=== PATIENT | male | born 1930 | race Caucasian/White ===

== ENCOUNTER 2016-05-22 12:15 | Emergency (ER) | payer MEDICARE, BC ==
[~2016-05-22] VITALS: Ht 177.8 cm; Wt 110.0 kg
[~2016-05-22 12:15] MED LIST: ALLO100T PO; AMLO10 PO; AVAP300T PO; CARD4TAB2 PO; CIPR500T4 PO; COUM5TAB PO; FURO1TAB93 PO; KLOR8TAB PO; METO50 PO; OMPR20CCR PO; PROV200T11 PO; SIMV40TA PO; WARF7.5T4 PO; ZOLP10TA3 PO
[2016-05-22 12:17] VITALS: BP 135/69; PULSE 88; RESP 12; TEMP 97.5; O2SAT 92
[2016-05-22] MEDS ORDERED: SODIUM CHLOR 0.9% 1000 ML INJ 1,000 ML IV SCH (13:11)
[2016-05-22 13:13] LABS: MEAN CORPUSCULAR HGB CONC 36.3 % (32.0-36.0)
[2016-05-22] MEDS ORDERED: SODIUM CHLORIDE 0.9% FLUSH 5 ML FLUSH IVF PRN (13:15)
[2016-05-22 13:23] VITALS: RESP 18; O2SAT 97
--- NOTE | 2016-05-22 13:59 | PD ---
HPI Chief Complaint: Abdominal Pain Time Seen by Provider: 12:50 Travel History International Travel<30 days: No Contact w/Intl Traveler<30days: No Traveled to known affect area: No History of Present Illness HPI 85-year-old man presents to the emergency department referred in by his primary physician reportedly for a stomach infection. He's been having lower abdominal pain for the past 1-2 weeks associated with copious diarrhea. He's had nausea and a little bit of vomiting as well. He's had diverticular disease in the past. No sick contacts. No recent antibiotics or healthcare exposures. States he had blood work done by his primary physician and that he was referred to the emergency department for concern for a stomach infection. He otherwise has been feeling generally well. No definite fevers or chills. No other complaints. History Past Medical History Narrative Medical Diverticular disease CAD, history of stent Pacer A. fib, on warfarin Hypertension hyperlipidemia PNEUMOCCOCAL Vaccine (Year): 1 Social History Alcohol Use: Yes (OCCASIONALLY) Tobacco Use: No Allergies-Medications (Allergen,Severity, Reaction): Coded Allergies: Codeine (Verified Allergy, Severe, RESPIRATORY S/S, 05/22/16) Penicillin (Verified Allergy, Severe, RASH, SOB, 05/22/16) Percocet (Verified Allergy, Severe, RESPIRATORY S/S, 05/22/16) Reported Meds & Prescriptions Reported Meds & Active Scripts Active Reported Zolpidem (Zolpidem Tartrate) 10 Mg Tab 10 Mg PO HS PRN Coumadin (Warfarin) 7.5 Mg Tab 7.5 Mg PO SUTUWETHSA Take 1 tablet (7.5mg) on Sunday,Sunday,Sunday, and Sunday Coumadin (Warfarin) 5 Mg Tab 5 Mg PO MOFR Take 1 tablet (5mg) on Sunday and Sunday Zocor (Simvastatin) 40 Mg Tab 40 Mg PO HS Provigil (Modafinil) 200 Mg Tab 200 Mg PO DAILY PRN Klor-Con 8 (Potassium Chloride) 8 Meq Tab 8 Meq PO TID Prilosec (Omeprazole) 40 Mg Cap 40 Mg PO DAILY Lopressor (Metoprolol Tartrate) 50 Mg Tab 50 Mg PO DAILY Cardura (Doxazosin Mesylate) 4 Mg Tab 4 Mg PO DAILY Lasix (Furosemide) 40 Mg Tab 40 Mg PO DAILY Avapro (Irbesartan) 300 Mg Tab 300 Mg PO DAILY Norvasc (Amlodipine Besylate) 10 Mg Tab 10 Mg PO DAILY Allopurinol 100 Mg Tab 100 Mg PO DAILY Review of Systems Except as stated in HPI: all other systems reviewed are Neg Physical Exam Narrative GENERAL: Well-appearing 85-year-old man, no acute distress. SKIN: Warm and dry. ENT: No nasal bleeding or discharge. Mucous membranes pink and moist. NECK: Trachea midline. No JVD. CARDIOVASCULAR: Regular rate and rhythm. No murmur appreciated. RESPIRATORY: No accessory muscle use. Clear to auscultation. Breath sounds equal bilaterally. GASTROINTESTINAL: Abdomen is obese, soft, moderate diffuse tenderness with just a little bit of voluntary guarding. MUSCULOSKELETAL: No obvious deformities. No clubbing. No cyanosis. No edema. NEUROLOGICAL: Awake and alert. No obvious cranial nerve deficits. Motor grossly within normal limits. Normal speech. Data Data Last Documented VS Vital Signs Date Time Temp Pulse Resp B/P Pulse Ox O2 Delivery O2 Flow Rate FiO2 05/22/16 13:23 18 97 Room Air 05/22/16 12:17 97.5 88 135/69 Orders Complete Blood Count With Diff (05/22/16 13:11) Comprehensive Metabolic Panel (05/22/16 13:11) Lipase (05/22/16 13:11) Ct Abd/Pel W Iv Contrast(Rout) (05/22/16 13:11) Iv Access Insert/Monitor (05/22/16 13:11) Ecg Monitoring (05/22/16 13:11) Oximetry (05/22/16 13:11) Sodium Chlor 0.9% 1000 Ml Inj (Ns 1000 M (05/22/16 13:11) Sodium Chloride 0.9% Flush (Ns Flush) (05/22/16 13:15) Iohexol 350 Inj (Omnipaque 350 Inj) (05/22/16 14:50) Labs Laboratory Tests Test 05/22/16 13:45 White Blood Count 6.8 TH/MM3 Red Blood Count 4.29 MIL/MM3 Hemoglobin 14.8 GM/DL Hematocrit 40.9 % Mean Corpuscular Volume 95.2 FL Mean Corpuscular Hemoglobin 34.6 PG Mean Corpuscular Hemoglobin 36.3 % Concent Red Cell Distribution Width 13.7 % Platelet Count 185 TH/MM3 Mean Platelet Volume 9.6 FL Neutrophils (%) (Auto) % Lymphocytes (%) (Auto) % Monocytes (%) (Auto) % Eosinophils (%) (Auto) % Basophils (%) (Auto) % Neutrophils # (Auto) TH/MM3 Lymphocytes # (Auto) TH/MM3 Monocytes # (Auto) TH/MM3 Eosinophils # (Auto) TH/MM3 Basophils # (Auto) TH/MM3 CBC Comment AUTO DIFF Differential Total Cells 100 Counted Neutrophils % (Manual) 61 % Band Neutrophils % 4 % Lymphocytes % 27 % Monocytes % 8 % Neutrophils # (Manual) 4.4 TH/MM3 Differential Comment FINAL DIFF MANUAL Platelet Estimate NORMAL Platelet Morphology Comment CLUMPED Red Cell Morphology Comment NORMAL Sodium Level 141 MEQ/L Potassium Level 4.5 MEQ/L Chloride Level 108 MEQ/L Carbon Dioxide Level 24.4 MEQ/L Anion Gap 9 MEQ/L Blood Urea Nitrogen 28 MG/DL Creatinine 1.43 MG/DL Estimat Glomerular Filtration 47 ML/MIN Rate Random Glucose 93 MG/DL Calcium Level 8.8 MG/DL Total Bilirubin 0.9 MG/DL Aspartate Amino Transf 29 U/L (AST/SGOT) Alanine Aminotransferase 27 U/L (ALT/SGPT) Alkaline Phosphatase 46 U/L Total Protein 6.7 GM/DL Albumin 3.9 GM/DL Lipase 191 U/L [facility] Medical Decision Making Medical Screen Exam Complete: Yes Emergency Medical Condition: Yes Interpretation(s) LABS: CBC unremarkable. CMP mildly elevated BUN/creatinine Lipase normal CT the abdomen and pelvis: Diverticulitis. Differential Diagnosis Diverticulitis, colitis, abscess, other Narrative Course Medical decision making INITIAL: Is an 85-year-old man who presents to the emergency department with abdominal pain, diarrhea, and tenderness, likely diverticulitis. We'll check labs, CT, reassess. Diagnosis Primary Impression: Acute diverticulitis Additional Instructions: Take antibiotics as prescribed. Decrease warfarin to 5 mg daily. Follow-up in 2 days for INR check. Use Lortab if needed for pain. Drink plenty of fluids stay well-hydrated. Follow-up with her primary doctor in the next 2-4 days. Med/Other Pt SpecificInfo: Prescription(s) given Scripts Metronidazole (Flagyl)500 Mg Onr002 Mg PO TID 10 Days Ref 0 Prov:Bay Willingham MD 05/22/16 Ciprofloxacin (Cipro)500 Mg Bbi438 Mg PO BID 10 Days Ref 0 Prov:Bay Willingham MD 05/22/16 Disposition: 01 DISCHARGE HOME Condition: Stable Bay Willingham MD May 22, 2016 13:59
[2016-05-22 14:09] LABS: HEMATOCRIT 40.9 % (39.0-51.0); MEAN CELL VOLUME 95.2 FL (80.0-100.0); MEAN CORPUSCULAR HEMOGLOBIN 34.6 PG (27.0-34.0); PLATELET COUNT 185 TH/MM3 (150-450); RED BLOOD COUNT 4.29 MIL/MM3 (4.50-5.90); RED CELL DISTRIBUTION WIDTH 13.7 % (11.6-17.2); WHITE BLOOD COUNT 6.8 TH/MM3 (4.0-11.0)
[2016-05-22 14:18] LABS: HEMO FLAGS AUTO DIFF
[2016-05-22 14:21] LABS: ALKALINE PHOSPHATASE 46 U/L (45-117); TOTAL BILIRUBIN ADULT 0.9 MG/DL (0.2-1.0)
[2016-05-22 14:24] LABS: ALT (GPT) 27 U/L (12-78); ANION GAP 9 MEQ/L (5-15); AST (GOT) 29 U/L (15-37); BICARBONATE 24.4 MEQ/L (21.0-32.0); BLOOD UREA NITROGEN 28 MG/DL (7-18); CHLORIDE 108 MEQ/L (98-107); GLOMERULAR FILTRATION RATE 47 ML/MIN (>89); SODIUM (NA) 141 MEQ/L (136-145)
[2016-05-22 14:25] LABS: POTASSIUM 4.5 MEQ/L (3.5-5.1)
[2016-05-22] MEDS ORDERED: CARD4TAB2 PO (14:26)
[2016-05-22] MEDS ORDERED: PROV200T11 PO (14:26)
[2016-05-22] MEDS ORDERED: COUM7.5T PO (14:26)
[2016-05-22] MEDS ORDERED: FURO1TAB60 PO (14:26)
[2016-05-22] MEDS ORDERED: IRBE300T44 PO (14:26)
[2016-05-22] MEDS ORDERED: ALLO100T PO (14:26)
[2016-05-22] MEDS ORDERED: COUM5TAB PO (14:26)
[2016-05-22] MEDS ORDERED: PRIL40CA PO (14:26)
[2016-05-22] MEDS ORDERED: METO-309 PO (14:26)
[2016-05-22] MEDS ORDERED: KLOR8TAB PO (14:26)
[2016-05-22] MEDS ORDERED: ZOLP10TA3 PO (14:26)
[2016-05-22] MEDS ORDERED: ZOCO40TA PO (14:26)
[2016-05-22] MEDS ORDERED: AMLO10 PO (14:26)
[2016-05-22 14:41] LABS: BANDS 4 % (0-6); NEUTROPHIL # MANUAL DIFF 4.4 TH/MM3 (1.8-7.7); POLYS (SEG NEUTROPHILS) 61 % (16-70); WBC DIFF SAMPLE 100
[2016-05-22 14:42] LABS: PLATELET ESTIMATE SMEAR NORMAL (NORMAL); PLATELET MORPHOLOGY CLUMPED (NORMAL)
[2016-05-22 14:43] LABS: SCAN/DIFF FINAL DIFF MANUAL
[2016-05-22] MEDS ORDERED: IOHEXOL 350 MG/ML 10 ML VIAL (for RAD DIAG) IV ONE (14:50)
--- NOTE | 2016-05-22 15:09 | RADRPT ---
EXAM DATE/TIME: 05/22/2016 14:47 [place] COMPARISON: CT ABDOMEN & PELVIS W CONTRAST, September 10, 2012, 16:01. INDICATIONS : Nausea and vomiting. Copious diarrhea x 2 weeks. IV CONTRAST: 75 cc Omnipaque 350 (iohexol) IV ORAL CONTRAST: No oral contrast ingested. RADIATION DOSE: 11.46 CTDIvol (mGy) MEDICAL HISTORY : Carcinoma, colon. Congestive heart failure. Renal calculi.Hypertension. SURGICAL HISTORY : Colon resection. Appendectomy.Pacemaker. ENCOUNTER: Initial ACUITY: 2 weeks PAIN SCALE: 2/10 LOCATION: Abdomen. TECHNIQUE: Volumetric scanning of the abdomen and pelvis was performed. Using automated exposure control and ad justment of the mA and/or kV according to patient size, radiation dose was kept as low as reasonably achievable to obtain optimal diagnostic quality images. FINDINGS: LOWER LUNGS: The visualized lower lungs are clear. LIVER: Scattered hepatic cysts are again noted. No ductal dilatation. There are stones in the gallbladder. N o common bile duct stone or dilatation. SPLEEN: Previous splenic infarct with regeneration. PANCREAS: Within normal limits. KIDNEYS: Bilateral cysts measuring up to 7 cm in size again noted. No stone. No hydronephrosis or hydroureter. ADRENAL GLANDS: Within normal limits. VASCULAR: There is atherosclerosis of the abdominal aorta and iliac arteries. No aneurysm. BOWEL/MESENTERY: Severe diverticulosis seen of the descending and sigmoid portions of the colon. There is mild edema i n the surrounding fat near the descending/sigmoid junction. No obstruction or perforation. ABDOMINAL WALL: Within normal limits. RETROPERITONEUM: There is no lymphadenopathy. BLADDER: No wall thickening or mass. REPRODUCTIVE: Within normal limits. INGUINAL: There is no lymphadenopathy or hernia. MUSCULOSKELETAL: Within normal limits for patient age. CONCLUSION: 1. Severe diverticulosis with mild, uncomplicated diverticulitis of the descending and sigmoid portio ns of the colon. 2. Unchanged hepatic and renal cysts. 3. 2 cm stone in the gallbladder. No perceptible inflammatory changes. No duct stone or ductal dilata tion. 4. Aortoiliac atherosclerosis. No aneurysm. Gualberto Mcmillan MD on May 22, 2016 at 15:05 Board Certified Radiologist. This report was verified electronically.
[2016-05-22] MEDS ORDERED: CIPR-9 PO (15:38)
[2016-05-22] MEDS ORDERED: METR-1 PO (15:38)
[2016-05-22] MEDS ORDERED: HYDR-3533 PO (15:40)
[2016-05-22] MEDS ORDERED: metroNIDAZOLE 500 MG TAB PO ONE (15:45)
[2016-05-22] MEDS ORDERED: CIPROFLOXACIN 500 MG TAB PO ONE (15:45)
[2016-05-22 16:32] LABS: INTERNATIONAL NORMALIZED RATIO 1.2 RATIO; PROTHROMBIN TIME - PATIENT 13.4 SEC (9.8-11.6)
== END 2016-05-22 15:58 | disposition home or self-care (01) ==
LOC: NEPE 12:15
DX: K57.92 Diverticulitis of intestine, part unspecified, without perforation or abscess without bleeding (principal); I25.10 Atherosclerotic heart disease of native coronary artery without angina pectoris; I48.91 Unspecified atrial fibrillation; I10 Essential (primary) hypertension; E78.5 Hyperlipidemia, unspecified; Z79.01 Long term (current) use of anticoagulants; Z95.0 Presence of cardiac pacemaker; Z98.61 Coronary angioplasty status
CPT/HCPCS: 74177; 80053; 83690; 85007; 85027; 85610; 96360; 99284; J7030; Q9967

== ENCOUNTER 2016-05-31 17:58 | Inpatient (IN) | payer MEDICARE, BC ==
[~2016-05-31] VITALS: Ht 177.8 cm; Wt 110.0 kg
[~2016-05-31 17:58] MED LIST changes: -AVAP300T PO; +CIPR-9 PO; -CIPR500T4 PO; +COUM7.5T PO; +FURO1TAB60 PO; -FURO1TAB93 PO; +HYDR-3533 PO; +IRBE300T44 PO; +METO-309 PO; -METO50 PO; +METR-1 PO; -OMPR20CCR PO; +PRIL40CA PO; -SIMV40TA PO; -WARF7.5T4 PO; +ZOCO40TA PO
[2016-05-31 19:15] VITALS: BP 168/79; PULSE 65; RESP 20; TEMP 98.5; O2SAT 96
[2016-05-31 19:22] VITALS: RESP 20
--- NOTE | 2016-05-31 19:43 | PD ---
HPI Chief Complaint: Altered Mental Status Time Seen by Provider: 19:39 Travel History International Travel<30 days: No Contact w/Intl Traveler<30days: No Traveled to known affect area: No History of Present Illness HPI 85-year-old male that presents to the ED for evaluation of altered mental status via E back. Patient was recently seen on the may for diverticulitis and discharged home with antibiotics. Per patient she's been taking antibiotics and he feels that his pain is getting better that he still continues to have the pain. Apparently patient's is currently in hospice for possible CVA the patient is not real aware of it. Patient again is confused as the main reason he is here. Patient apparently was found by neighbors been confused and they were concerned. Patient denies any other medical problem. Per patient he does feel weak. He states I'm bowel movements today. States having gas. No nausea or vomiting. No chest pain or shortness of breath. No headache or lightheadedness. No blurry vision or double vision. Per patient pain is 4 out of 10 on his lower abdomen. He does have allergies to codeine, penicillin, Percocet. Denies any other medical problem at this time. Patient states that he only lives with his but as of the time to his was admitted he is living by himself. PFSH Past Medical History Hx Anticoagulant Therapy: Yes (Coumadin ) Arthritis: Yes (HANDS, knees) Asthma: No Atrial Fibrillation: Yes Autoimmune Disease: No Blood Disorders: No Anxiety: No Depression: No Heart Rhythm Problems: Yes Cancer: Yes (COLON) Cardiac Catheterization: Yes Cardiovascular Problems: Yes (AF, pacemaker) High Cholesterol: Yes Chemotherapy: No Chest Pain: Yes Congestive Heart Failure: Yes COPD: No Cerebrovascular Accident: No Diabetes: Yes (Borderline ) Diminished Hearing: No Endocrine: Yes Gastrointestinal Disorders: Yes GERD: Yes Glaucoma: No Genitourinary: Yes Headaches: No Hepatitis: No Hiatal Hernia: No Hypertension: Yes Immune Disorder: No Implanted Vascular Access Dvce: Yes Kidney Stones: Yes Musculoskeletal: Yes Neurologic: No Psychiatric: No Reproductive: No Respiratory: Yes (Sleep apnea) Immunizations Current: Yes Migraines: No Myocardial Infarction: Yes Radiation Therapy: No Renal Failure: No Seizures: No Sickle Cell Disease: No Sleep Apnea: Yes Thyroid Disease: No Ulcer: No PNEUMOCCOCAL Vaccine (Year): 1 Past Surgical History Abdominal Surgery: Yes (COLON CA/ RESECTION) AICD: Yes Appendectomy: Yes Arteriovenous Shunt: No Body Medical Devices: PACEMAKER/DEFIBRILLATOR Cardiac Surgery: Yes (CARDIAC CATH-09/25 ) Cholecystectomy: No Coronary Stent: Yes ("MULTIPLE") Ear Surgery: No Endocrine Surgery: No Eye Surgery: Yes (CATARACT SURGERY WITH LENS IMPLANTS) Genitourinary Surgery: No Gynecologic Surgery: No Insulin Pump: No Joint Replacement: No Neurologic Surgery: Yes (LOWER BACK SURGERY) Oral Surgery: No Pacemaker: Yes (ST HARJINDER MODEL) Thoracic Surgery: No Other Surgery: Yes (BACK SURGERYX2; COLON CA & RESECTION; PILONIDAL CYST REMOVED FROM SPINE; AP) Social History Alcohol Use: Yes (OCCASIONALLY) Tobacco Use: No Substance Use: No Allergies-Medications (Allergen,Severity, Reaction): Coded Allergies: Codeine (Verified Allergy, Severe, RESPIRATORY S/S, 05/31/16) Penicillin (Verified Allergy, Severe, RASH, SOB, 05/31/16) Percocet (Verified Allergy, Severe, RESPIRATORY S/S, 05/31/16) Reported Meds & Prescriptions Reported Meds & Active Scripts Active Lortab (Hydrocodone-Acetaminophen) 5-325 Mg Tab 1-2 Tab PO Q6H PRN Flagyl (Metronidazole) 500 Mg Tab 500 Mg PO TID 10 Days Cipro (Ciprofloxacin HCl) 500 Mg Tab 500 Mg PO BID 10 Days Reported Zolpidem (Zolpidem Tartrate) 10 Mg Tab 10 Mg PO HS PRN Coumadin (Warfarin) 7.5 Mg Tab 7.5 Mg PO SUTUWETHSA Take 1 tablet (7.5mg) on Sunday,Sunday,Sunday, and Sunday Coumadin (Warfarin) 5 Mg Tab 5 Mg PO MOFR Take 1 tablet (5mg) on Sunday and Sunday Zocor (Simvastatin) 40 Mg Tab 40 Mg PO HS Provigil (Modafinil) 200 Mg Tab 200 Mg PO DAILY PRN Klor-Con 8 (Potassium Chloride) 8 Meq Tab 8 Meq PO TID Prilosec (Omeprazole) 40 Mg Cap 40 Mg PO DAILY Lopressor (Metoprolol Tartrate) 50 Mg Tab 50 Mg PO DAILY Cardura (Doxazosin Mesylate) 4 Mg Tab 4 Mg PO DAILY Lasix (Furosemide) 40 Mg Tab 40 Mg PO DAILY Avapro (Irbesartan) 300 Mg Tab 300 Mg PO DAILY Norvasc (Amlodipine Besylate) 10 Mg Tab 10 Mg PO DAILY Allopurinol 100 Mg Tab 100 Mg PO DAILY Review of Systems Except as stated in HPI: all other systems reviewed are Neg Physical Exam Narrative GENERAL: SKIN: Warm and dry. HEAD: Atraumatic. Normocephalic. EYES: Pupils equal and round. No scleral icterus. No injection or drainage. ENT: No nasal bleeding or discharge. Mucous membranes pink and moist. Tongue is midline. No uvula deviation. NECK: Trachea midline. No JVD. CARDIOVASCULAR: Regular rate and rhythm. RESPIRATORY: No accessory muscle use. Clear to auscultation. Breath sounds equal bilaterally. GASTROINTESTINAL: Abdomen soft, patient has tenderness to palpation on the lower abdomen, nondistended. Hepatic and splenic margins not palpable. Patient has no CVA tenderness. MUSCULOSKELETAL: Extremities without clubbing, cyanosis, or edema. No obvious deformities. Full range of motion of the upper and lower extremities bilaterally. 2+ pulses bilaterally. NEUROLOGICAL: Awake and alert but only oriented x2. No obvious cranial nerve deficits. Motor grossly within normal limits. Five out of 5 muscle strength in the arms and legs. Normal speech. PSYCHIATRIC: Appropriate mood and affect; insight and judgment normal. Data Data Last Documented VS Vital Signs Date Time Temp Pulse Resp B/P Pulse Ox O2 Delivery O2 Flow Rate FiO2 05/31/16 20:14 67 20 165/87 98 Room Air 05/31/16 19:15 98.5 Orders Electrocardiogram (05/31/16 19:14) Complete Blood Count With Diff (05/31/16 19:14) Comprehensive Metabolic Panel (05/31/16 19:14) Ckmb (Isoenzyme) Profile (05/31/16 19:14) Troponin I (05/31/16 19:14) Prothrombin Time / Inr (Pt) (05/31/16 19:14) Act Partial Throm Time (Ptt) (05/31/16 19:14) Lipase (05/31/16 19:14) Urinalysis - C+S If Indicated (05/31/16 19:14) Thyroid Stimulating Hormone (05/31/16 19:14) Chest, Single Ap (05/31/16 19:14) Iv Access Insert/Monitor (05/31/16 19:14) Ecg Monitoring (05/31/16 19:14) Oximetry (05/31/16 19:14) Ct Brain W/O Iv Contrast(Rout) (05/31/16 19:19) Ct Abd/Pel W Iv Contrast(Rout) (05/31/16 19:19) Lactic Acid (05/31/16 19:42) Sodium Chlor 0.9% 1000 Ml Inj (Ns 1000 M (05/31/16 19:59) Potassium Cl 40 Meq/30 Ml Liq (Kcl 40 Me (05/31/16 21:00) Iohexol 350 Inj (Omnipaque 350 Inj) (05/31/16 21:34) Cefepime Inj (Maxipime Inj) (05/31/16 21:45) Mri Brain W&W/O Contrast (05/31/16 ) Labs Laboratory Tests Test 05/31/16 05/31/16 19:35 19:50 Urine Color YELLOW Urine Turbidity CLEAR Urine pH 5.0 Urine Specific [place] 1.020 Urine Protein NEG mg/dL Urine Glucose (UA) NEG mg/dL Urine Ketones NEG mg/dL Urine Occult Blood NEG Urine Nitrite NEG Urine Bilirubin NEG Urine Urobilinogen LESS THAN 2.0 MG/DL Urine Leukocyte Esterase NEG Urine RBC LESS THAN 1 /hpf Urine WBC LESS THAN 1 /hpf Urine Hyaline Casts 1 /lpf Urine Mucus FEW /lpf Microscopic Urinalysis Comment CULT NOT INDICATED White Blood Count 3.0 TH/MM3 Red Blood Count 4.14 MIL/MM3 Hemoglobin 13.3 GM/DL Hematocrit 39.5 % Mean Corpuscular Volume 95.4 FL Mean Corpuscular Hemoglobin 32.1 PG Mean Corpuscular Hemoglobin 33.7 % Concent Red Cell Distribution Width 13.8 % Platelet Count 165 TH/MM3 Mean Platelet Volume 8.1 FL Neutrophils (%) (Auto) % Lymphocytes (%) (Auto) % Monocytes (%) (Auto) % Eosinophils (%) (Auto) % Basophils (%) (Auto) % Neutrophils # (Auto) TH/MM3 Lymphocytes # (Auto) TH/MM3 Monocytes # (Auto) TH/MM3 Eosinophils # (Auto) TH/MM3 Basophils # (Auto) TH/MM3 CBC Comment AUTO DIFF Differential Total Cells 100 Counted Neutrophils % (Manual) 10 % Band Neutrophils % 1 % Lymphocytes % 56 % Monocytes % 28 % Eosinophils % 4 % Basophils % 1 % Neutrophils # (Manual) 0.3 TH/MM3 Differential Comment FINAL DIFF MANUAL Platelet Estimate NORMAL Platelet Morphology Comment NORMAL Acanthocytes OCC Prothrombin Time 18.6 SEC Prothromb Time International 1.6 RATIO Ratio Activated Partial 26.4 SEC Thromboplast Time Sodium Level 147 MEQ/L Potassium Level 2.8 MEQ/L Chloride Level 116 MEQ/L Carbon Dioxide Level 22.7 MEQ/L Anion Gap 8 MEQ/L Blood Urea Nitrogen 18 MG/DL Creatinine 0.73 MG/DL Estimat Glomerular Filtration 102 ML/MIN Rate Random Glucose 74 MG/DL Lactic Acid Level 1.3 mmol/L Calcium Level 6.1 MG/DL Protein Corrected Calcium 7.3 MG/DL Total Bilirubin 0.4 MG/DL Aspartate Amino Transf 12 U/L (AST/SGOT) Alanine Aminotransferase 21 U/L (ALT/SGPT) Alkaline Phosphatase 32 U/L Total Creatine Kinase 55 U/L Troponin I 0.03 NG/ML Total Protein 4.5 GM/DL Albumin 2.5 GM/DL Lipase 97 U/L Thyroid Stimulating Hormone 2.090 uIU/ML 3rd Gen [facility] Medical Decision Making Medical Screen Exam Complete: Yes Emergency Medical Condition: Yes Medical Record Reviewed: Yes Interpretation(s) Last Impressions Head CT 05/31/161918 Signed Impressions: Service Date/Time: Tuesday, May 31, 2016 21:26 - CONCLUSION: 1. Extensive nonspecific white matter changes. 2. Prominent area of low-density in the midbrain of uncertain etiology. Nonemergent contrasted MRI of the brain recommended. Johnson Salinas MD Abdomen/Pelvis CT 05/31/[id number] Signed Impressions: Service Date/Time: Tuesday, May 31, 2016 21:26 - CONCLUSION: 1. Diverticulosis without diverticulitis. 2. Unchanged cholelithiasis. 3. Unchanged hepatic low-density lesions in bilateral renal cysts. Johnson Salinas MD Chest X-Ray 05/31/[id number] Signed Impressions: Service Date/Time: Tuesday, May 31, 2016 19:37 - CONCLUSION: 1. Elevation right hemidiaphragm, chronic. 2. Right basilar subsegmental atelectasis versus scarring. 3. Cardiomegaly and left-sided pacemaker. Johnson Salinas MD CBC & BMP Diagram 05/31/16 19:50 lactic WNL. LFTS WNL Lipase WNL UA unremarcable Differential Diagnosis Acute diverticulitis versus perforated bowel versus sepsis versus anemia versus altered mental status versus CVA Narrative Course 85-year-old male that presents to the ED for evaluation of confusion. Patient was properly examined and was found to have signs and symptoms concerning for sepsis with altered mental status. Labs and imaging were ordered. Case discussed with my attending who agrees with plan. Patient agrees with us to proceed. Labs and imaging did not show diverticulitis with extremities or pain as well as abnormality on the CT of the head with MRI recommended as well as hyperkalemia, hypernatremia and hypocalcemia. Case was discussed with my attending who recommends starting IV fluids, replenish his potassium, antibiotics. She recommends admission for altered mental status. Case was discussed with Dr. Theodore who agrees to admission. Sepsis Criteria SIRS Criteria (2 or more): WBC > 02548, < 4000 or > 10% bands Diagnosis Primary Impression: Altered mental status Qualified Code: R41.82 - Altered mental status, unspecified altered mental status type Additional Impressions: Neutropenia Qualified Code: D70.9 - Neutropenia, unspecified type Abdominal pain Qualified Code: R10.30 - Lower abdominal pain Admitting Information Admitting Physician Requests: Admit Brady Alicia May 31, 2016 19:42
[2016-05-31] MEDS ORDERED: SODIUM CHLOR 0.9% 1000 ML INJ 1,000 ML IV SCH (19:59)
[2016-05-31 20:08] LABS: HEMATOCRIT 39.5 % (39.0-51.0); MEAN CELL VOLUME 95.4 FL (80.0-100.0); MEAN CORPUSCULAR HEMOGLOBIN 32.1 PG (27.0-34.0); MEAN CORPUSCULAR HGB CONC 33.7 % (32.0-36.0); PLATELET COUNT 165 TH/MM3 (150-450); RED BLOOD COUNT 4.14 MIL/MM3 (4.50-5.90); RED CELL DISTRIBUTION WIDTH 13.8 % (11.6-17.2)
--- NOTE | 2016-05-31 20:08 | PD ---
Physical Exam Narrative I, Dr. Spencer, have reviewed the advance practice practitioner's documentation and am in agreement, met with the patient face to face, made the diagnosis, and the medical decision making was done by me. *My assessment and Findings: Patient is an 85-year-old male who comes in a cousin he has been having issues remembering things. He is diagnosed with radiculitis and has been on antibiotics, but his family members say that he is not acting like himself now. He says he was out today and he was unable to find his way home. His family member says that he forgets racing in the middle of sentence. He has no complaint of any pain at this time. Exam shows tenting of the skin. Patient appears pale. Exam shows no tenderness to palpation of the abdomen. He is moving all his extremities. Data Data Last Documented VS Vital Signs Date Time Temp Pulse Resp B/P Pulse Ox O2 Delivery O2 Flow Rate FiO2 05/31/16 20:14 67 20 165/87 98 Room Air 05/31/16 19:15 98.5 Orders Electrocardiogram (05/31/16 19:14) Complete Blood Count With Diff (05/31/16 19:14) Comprehensive Metabolic Panel (05/31/16 19:14) Ckmb (Isoenzyme) Profile (05/31/16 19:14) Troponin I (05/31/16 19:14) Prothrombin Time / Inr (Pt) (05/31/16 19:14) Act Partial Throm Time (Ptt) (05/31/16 19:14) Lipase (05/31/16 19:14) Urinalysis - C+S If Indicated (05/31/16 19:14) Thyroid Stimulating Hormone (05/31/16 19:14) Chest, Single Ap (05/31/16 19:14) Iv Access Insert/Monitor (05/31/16 19:14) Ecg Monitoring (05/31/16 19:14) Oximetry (05/31/16 19:14) Ct Brain W/O Iv Contrast(Rout) (05/31/16 19:19) Ct Abd/Pel W Iv Contrast(Rout) (05/31/16 19:19) Lactic Acid (05/31/16 19:42) Sodium Chlor 0.9% 1000 Ml Inj (Ns 1000 M (05/31/16 19:59) Potassium Cl 40 Meq/30 Ml Liq (Kcl 40 Me (05/31/16 21:00) Iohexol 350 Inj (Omnipaque 350 Inj) (05/31/16 21:34) Cefepime Inj (Maxipime Inj) (05/31/16 21:45) Admit Order (Ed Use Only) (05/31/16 22:18) Labs Laboratory Tests Test 05/31/16 05/31/16 19:35 19:50 Urine Color YELLOW Urine Turbidity CLEAR Urine pH 5.0 Urine Specific [place] 1.020 Urine Protein NEG mg/dL Urine Glucose (UA) NEG mg/dL Urine Ketones NEG mg/dL Urine Occult Blood NEG Urine Nitrite NEG Urine Bilirubin NEG Urine Urobilinogen LESS THAN 2.0 MG/DL Urine Leukocyte Esterase NEG Urine RBC LESS THAN 1 /hpf Urine WBC LESS THAN 1 /hpf Urine Hyaline Casts 1 /lpf Urine Mucus FEW /lpf Microscopic Urinalysis Comment CULT NOT INDICATED White Blood Count 3.0 TH/MM3 Red Blood Count 4.14 MIL/MM3 Hemoglobin 13.3 GM/DL Hematocrit 39.5 % Mean Corpuscular Volume 95.4 FL Mean Corpuscular Hemoglobin 32.1 PG Mean Corpuscular Hemoglobin 33.7 % Concent Red Cell Distribution Width 13.8 % Platelet Count 165 TH/MM3 Mean Platelet Volume 8.1 FL Neutrophils (%) (Auto) % Lymphocytes (%) (Auto) % Monocytes (%) (Auto) % Eosinophils (%) (Auto) % Basophils (%) (Auto) % Neutrophils # (Auto) TH/MM3 Lymphocytes # (Auto) TH/MM3 Monocytes # (Auto) TH/MM3 Eosinophils # (Auto) TH/MM3 Basophils # (Auto) TH/MM3 CBC Comment AUTO DIFF Differential Total Cells 100 Counted Neutrophils % (Manual) 10 % Band Neutrophils % 1 % Lymphocytes % 56 % Monocytes % 28 % Eosinophils % 4 % Basophils % 1 % Neutrophils # (Manual) 0.3 TH/MM3 Differential Comment FINAL DIFF MANUAL Platelet Estimate NORMAL Platelet Morphology Comment NORMAL Acanthocytes OCC Prothrombin Time 18.6 SEC Prothromb Time International 1.6 RATIO Ratio Activated Partial 26.4 SEC Thromboplast Time Sodium Level 147 MEQ/L Potassium Level 2.8 MEQ/L Chloride Level 116 MEQ/L Carbon Dioxide Level 22.7 MEQ/L Anion Gap 8 MEQ/L Blood Urea Nitrogen 18 MG/DL Creatinine 0.73 MG/DL Estimat Glomerular Filtration 102 ML/MIN Rate Random Glucose 74 MG/DL Lactic Acid Level 1.3 mmol/L Calcium Level 6.1 MG/DL Protein Corrected Calcium 7.3 MG/DL Total Bilirubin 0.4 MG/DL Aspartate Amino Transf 12 U/L (AST/SGOT) Alanine Aminotransferase 21 U/L (ALT/SGPT) Alkaline Phosphatase 32 U/L Total Creatine Kinase 55 U/L Troponin I 0.03 NG/ML Total Protein 4.5 GM/DL Albumin 2.5 GM/DL Lipase 97 U/L Thyroid Stimulating Hormone 2.090 uIU/ML 3rd Gen [facility] Supervised Visit with NICOLÁS: Yes Narrative Course Labs show neutropenia. Patient was given cefepime. CT of his abdomen and pelvis shows no acute abnormalities. CT head shows a hypodensity that needs further evaluation by MRI. Patient admitted for further management. Guerline Spencer MD May 31, 2016 20:08
[2016-05-31 20:14] VITALS: BP 165/87; PULSE 67; RESP 20; O2SAT 98
[2016-05-31 20:14] LABS: HEMO FLAGS AUTO DIFF
[2016-05-31 20:24] LABS: BLOOD, URINE NEG (NEG); COMMENT (UR) CULT NOT INDICATED; CULTURE IF INDICATED CULT NOT INDICATED; GLUCOSE,URINE NEG (NEG); HYALINE CAST, URINE 1 /lpf (RARE); KETONE, URINE NEG (NEG); MUCUS URINE FEW /lpf (OCC); NITRITE,URINE NEG (NEG); URINE COLOR YELLOW (YELLW/STRAW)
[2016-05-31 20:25] LABS: APTT (PATIENT) 26.4 SEC (24.3-30.1); INTERNATIONAL NORMALIZED RATIO 1.6 RATIO; PROTHROMBIN TIME - PATIENT 18.6 SEC (9.8-11.6)
[2016-05-31 20:54] LABS: BICARBONATE 22.7 MEQ/L (21.0-32.0); TOTAL BILIRUBIN ADULT 0.4 MG/DL (0.2-1.0)
[2016-05-31 20:59] LABS: CALCIUM-PROTEIN CORRECTED 7.3 MG/DL (8.5-10.1); POTASSIUM 2.8 MEQ/L (3.5-5.1)
[2016-05-31] MEDS ORDERED: POTASSIUM CL 40 MEQ/30 ML LIQ UDC PO ONE (21:00)
--- NOTE | 2016-05-31 21:09 | RADRPT ---
EXAM DATE/TIME: 05/31/2016 19:37 [facility] COMPARISON: CHEST SINGLE AP, June 22, 2014, 12:21. INDICATIONS : Weakness. MEDICAL HISTORY : None. SURGICAL HISTORY : None. ENCOUNTER: Initial ACUITY: 1 week PAIN SCORE: 0/10 LOCATION: Bilateral chest FINDINGS: A single view of the chest demonstrates cardiomegaly. Elevation right hemidiaphragm. Right basilar roger bsegmental atelectasis. Left-sided pacemaker stable position. The cardiomediastinal contours are unre markable. Osseous structures are intact. CONCLUSION: 1. Elevation right hemidiaphragm, chronic. 2. Right basilar subsegmental atelectasis versus scarring. 3. Cardiomegaly and left-sided pacemaker. Johnson Salinas MD on May 31, 2016 at 19:45 Board Certified Radiologist. This report was verified electronically.
[2016-05-31 21:30] LABS: ACANTHOCYTES OCC (NORMAL); BANDS 1 % (0-6); BASOPHILS 1 % (0-2); EOSINOPHILS 4 % (0-4); NEUTROPHIL # MANUAL DIFF 0.3 TH/MM3 (1.8-7.7); PLATELET ESTIMATE SMEAR NORMAL (NORMAL); PLATELET MORPHOLOGY NORMAL (NORMAL); POLYS (SEG NEUTROPHILS) 10 % (16-70); SCAN/DIFF FINAL DIFF MANUAL; WBC DIFF SAMPLE 100
[2016-05-31] MEDS ORDERED: IOHEXOL 350 MG/ML 10 ML VIAL (for RAD DIAG) IV ONE (21:34)
--- NOTE | 2016-05-31 21:42 | RADRPT ---
EXAM DATE/TIME: 05/31/2016 21:26 [facility] COMPARISON: No previous studies available for comparison. INDICATIONS : Altered mental status. RADIATION DOSE: 64.16 CTDIvol (mGy) MEDICAL HISTORY : Myocardial infarction. Congestive heart failure. Hypertension. SURGICAL HISTORY : Pacemaker. Bilateral lens implants. ENCOUNTER: Initial ACUITY: 1 day PAIN SCALE: 6/10 LOCATION: cranial TECHNIQUE: Multiple contiguous axial images were obtained of the head. Using automated exposure control and adj ustment of the mA and/or kV according to patient size, radiation dose was kept as low as reasonably a chievable to obtain optimal diagnostic quality images. FINDINGS: CEREBRUM: The ventricles are normal for age. Prominent scattered areas of low attenuation are seen throughout t he white matter. There is also an area of low-density in the midbrain which crosses midline of uncert ain etiology. No evidence of midline shift, mass lesion, hemorrhage or acute infarction. No extra-ax ial fluid collections are seen. POSTERIOR FOSSA: The cerebellum and brainstem are intact. The 4th ventricle is midline. The cerebellopontine angle i s unremarkable. EXTRACRANIAL: The visualized portion of the orbits is intact. Left maxillary sinus disease. SKULL: The calvaria is intact. No evidence of skull fracture. CONCLUSION: 1. Extensive nonspecific white matter changes. 2. Prominent area of low-density in the midbrain of uncertain etiology. Nonemergent contrasted MRI of the brain recommended. Johnson Salinas MD on May 31, 2016 at 21:37 Board Certified Radiologist. This report was verified electronically.
[2016-05-31] MEDS ORDERED: CEFEPIME INJ 1,000 MG in SODIUM CHLORIDE 0.9% INJ 100 ML IV ONE (21:45)
--- NOTE | 2016-05-31 21:47 | RADRPT ---
EXAM DATE/TIME: 05/31/2016 21:26 [facility] COMPARISON: CT ABDOMEN & PELVIS W CONTRAST, May 22, 2016, 14:47. INDICATIONS : Diffuse abdominal pain. IV CONTRAST: 95 cc Omnipaque 300 (iohexol) IV ORAL CONTRAST: No oral contrast ingested. RADIATION DOSE: 16.49 CTDIvol (mGy) MEDICAL HISTORY : Gastroesophageal reflux disease. Renal calculi. Congestive heart failure.Diabetes. Carcinoma, colon. SURGICAL HISTORY : Pacemaker. Appendectomy.Coronary artery stent. ENCOUNTER: Initial ACUITY: 1 day PAIN SCALE: 7/10 LOCATION: Abdomen. TECHNIQUE: Volumetric scanning of the abdomen and pelvis was performed. Using automated exposure control and ad justment of the mA and/or kV according to patient size, radiation dose was kept as low as reasonably achievable to obtain optimal diagnostic quality images. FINDINGS: LOWER LUNGS: The visualized lower lungs are clear. LIVER: Homogeneous density without no dilation of the biliary tree. Gallstone appears unchanged. A few scatt ered subcentimeter low densities. SPLEEN: Normal size without lesion. PANCREAS: Within normal limits. KIDNEYS: Normal in size and shape. There is no mass, stone or hydronephrosis. Large bilateral renal cysts aga in noted. ADRENAL GLANDS: Within normal limits. VASCULAR: There is no aortic aneurysm. Extensive atherosclerotic changes. BOWEL/MESENTERY: Extensive diverticulosis without diverticulitis. There is no free intraperitoneal air or fluid. ABDOMINAL WALL: Within normal limits. RETROPERITONEUM: There is no lymphadenopathy. BLADDER: No wall thickening or mass. REPRODUCTIVE: Within normal limits. Prostate mildly prominent. INGUINAL: There is no lymphadenopathy or hernia. MUSCULOSKELETAL: Degenerative changes and scoliosis. CONCLUSION: 1. Diverticulosis without diverticulitis. 2. Unchanged cholelithiasis. 3. Unchanged hepatic low-density lesions in bilateral renal cysts. Johnson Salinas MD on May 31, 2016 at 21:42 Board Certified Radiologist. This report was verified electronically.
[2016-05-31] MEDS ORDERED: SODIUM CHLORIDE 0.9% FLUSH 5 ML FLUSH FLUSH PRN (22:15)
[2016-05-31] MEDS ORDERED: NALOXONE HCL 0.4 MG/ML AMP IV PRN (22:15)
[2016-05-31] MEDS ORDERED: CALCIUM GLUCONATE INJ 2 GM in SODIUM CHLORIDE 0.9% INJ 100 ML IV ONE (22:30)
[2016-06-01] VITALS (9 sets, daily range): BP systolic 136–220; BP diastolic 70–92; PULSE 60–100; RESP 16–20; TEMP 95.8–98.5; O2SAT 94–99
[2016-06-01] MEDS: POTASSIUM CHLOR 20 MEQ PREMIX 100 ML IV SCH ×2 (00:12→02:32)
--- NOTE | 2016-06-01 01:13 | HHI.HP ---
[facility] Randell Katz MD Admission Diagnosis altered mental status, neutropenia, lower abdominal pain Diagnoses: (1) Encephalopathy (2) Atrial fibrillation (3) Neutropenia (4) Hypokalemia (5) Hypocalcemia (6) Hypernatremia Chief Complaint: Altered mental status Travel History International Travel<30 Days: No Contact w/Intl Traveler <30 Da: No Traveled to Known Affected Are: No History of Present Illness Mr. Fernandez is an 85-year-old male with a past medical history of atrial fibrillation on Coumadin, coronary artery disease status post cardiac stents, hypertension, sick sinus syndrome status post permanent pacemaker placement, sleep apnea, hyperlipidemia, gastroesophageal reflux disease, BPH, nephrolithiasis, osteoporosis, gout, splenic infarct, diverticulosis/ diverticulitis, and asthmatic bronchitis who presented to the emergency room 03/2017 after neighbors found him to have altered mental status. CT of abdomen and pelvis shows diverticulosis without diverticulitis. Unchanged cholelithiasis. Unchanged hepatic low-density lesions and bilateral renal cysts. Head CT with extensive nonspecific white matter changes and prominent area of low density in the mid brain of uncertain etiology. Contrasted MRI of the brain recommended. Chest x-ray shows elevation of right marco-diaphragm which is chronic, right basilar subsegmental atelectasis versus scarring. Cardiomegaly and left-sided pacemaker. WBC low at 3.0 and neutropenia noted with critically low neutrophil number. The patient is seen in the emergency room. He provides answers to questions that are not consistent with his history or information in his medical record. Therefore, HPI and medical history brought forward from the electronic medical record and discussion with healthcare providers. . Review of Systems ROS Limitations: Poor Historian Other Unable to obtain reliable review of systems due to patient's altered mental status . Past Family Social History Past Medical History Coronary artery disease multiple cardiac stents Hypertension Sick sinus syndrome status post permanent pacemaker placement Sleep apnea Hyperlipidemia Gastroesophageal reflux disease BPH Renal lithiasis Osteoporosis with history of L4 compression fracture Gout Chronic atrial fibrillation Splenic infarct 2012 Diverticulosis/diverticulitis Asthmatic bronchitis Cancer status post resection Past Surgical History Appendectomy Pilonidal cyst removal Varicose vein removal Left L2 laminectomy and discectomy Repair near amputation of left index and left middle finger Permanent pacemaker placement 12/27/2007 for symptomatic bradycardia Cataract surgery, bilateral Inguinal hernia repair Reported Medications Reported Meds & Active Scripts Active Lortab (Hydrocodone-Acetaminophen) 5-325 Mg Tab 1-2 Tab PO Q6H PRN Flagyl (Metronidazole) 500 Mg Tab 500 Mg PO TID 10 Days Cipro (Ciprofloxacin HCl) 500 Mg Tab 500 Mg PO BID 10 Days Reported Zolpidem (Zolpidem Tartrate) 10 Mg Tab 10 Mg PO HS PRN Coumadin (Warfarin) 7.5 Mg Tab 7.5 Mg PO SUTUWETHSA Take 1 tablet (7.5mg) on Sunday,Sunday,Sunday, and Sunday Coumadin (Warfarin) 5 Mg Tab 5 Mg PO MOFR Take 1 tablet (5mg) on Sunday and Sunday Zocor (Simvastatin) 40 Mg Tab 40 Mg PO HS Provigil (Modafinil) 200 Mg Tab 200 Mg PO DAILY PRN Klor-Con 8 (Potassium Chloride) 8 Meq Tab 8 Meq PO TID Prilosec (Omeprazole) 40 Mg Cap 40 Mg PO DAILY Lopressor (Metoprolol Tartrate) 50 Mg Tab 50 Mg PO DAILY Cardura (Doxazosin Mesylate) 4 Mg Tab 4 Mg PO DAILY Lasix (Furosemide) 40 Mg Tab 40 Mg PO DAILY Avapro (Irbesartan) 300 Mg Tab 300 Mg PO DAILY Norvasc (Amlodipine Besylate) 10 Mg Tab 10 Mg PO DAILY Allopurinol 100 Mg Tab 100 Mg PO DAILY Allergies: Coded Allergies: Codeine (Verified Allergy, Severe, RESPIRATORY S/S, 05/31/16) Penicillin (Verified Allergy, Severe, RASH, SOB, 05/31/16) Percocet (Verified Allergy, Severe, RESPIRATORY S/S, 05/31/16) MRI PRECAUTION (Verified Adverse Reaction, Severe, NON CONDITIONAL PACEMAKER KMD 06/01/16, 06/01/16) PT HAS AN ADAPTA SR (ADSR01) WITH A [facility] PACING LEAD PER [employer] DEVICE VERIFICATION SERVICE. Active Ordered Medications Current Medications Sodium Chloride (NS 1000 ml Inj) 1,000 ml @ 1,000 mls/hr Q1H IV Last administered on 05/31/16t 20:12; Start 05/31/16 at 19:59; Stop 05/31/16 at 20:58 ; Status DC Potassium Chloride (KCl 40 Meq/30 ml Liq) 40 meq ONCE ONCE PO Last administered on 05/31/16 21:20; Start 05/31/16 at 21:00; Stop 05/31/16 at 21:03 ; Status DC Iohexol 95 ml 95 ml STK-MED ONCE IV Last administered on 05/31/16 21:34; Start 05/31/16 at 21:34; Stop 05/31/16 at 21:35; Status DC Cefepime HCl/ Sodium Chloride (Maxipime Inj/NS Inj) 100 ml @ 200 mls/hr ONCE ONCE IV Last administered on 05/31/16 22:05; Start 05/31/16 at 21:45; Stop 04/06 at 22:14; Status DC IV Flush (NS Flush) 2 ml UNSCH PRN FLUSH FLUSH AFTER USING IV ACCESS; Start 04/06 at 22:15 IV Flush (NS Flush) 2 ml BID FLUSH ; Start 06/01/16 at 09:00 Enoxaparin Sodium (Lovenox Inj) 40 mg Q24H SQ ; Start 06/01/16 at 09:00 Naloxone HCl 0.4 mg 0.4 mg UNSCH PRN IV SEE LABEL COMMENTS; Start 05/31/16 at 22:15 Potassium Chloride 100 ml @ 50 mls/hr Q2H IV Last administered on 06/01/16 02 :32; Start 05/31/16 at 22:30; Stop 06/01/16 at 02:29; Status DC Calcium Gluconate 2 gm/Sodium Chloride 120 ml @ 120 mls/hr ONCE ONCE IV Last administered on 05/31/16 23:14; Start 05/31/16 at 22:30; Stop 05/31/16 at 23:29 ; Status DC Cefepime HCl/ Sodium Chloride (Maxipime Inj/NS Inj) 100 ml @ 200 mls/hr Q8HR IV ; Start 06/01/16 at 06:00 . Family History Renal cell carcinoma Heart disease CVA Cardiac arrhythmias . Social History Tobacco: quit smoking Alcohol: none patient's is under care of hospice for CVA . Physical Exam Vital Signs Vital Signs Date Time Temp Pulse Resp B/P Pulse Ox O2 Delivery O2 Flow Rate FiO2 05/31/16 20:14 67 20 165/87 98 Room Air 05/31/16 19:22 20 05/31/16 19:15 98.5 65 20 168/79 96 Physical Exam GENERAL: This is a pleasant but confused elderly male patient, in no apparent distress. SKIN: No rashes, ecchymoses or lesions. Cool and dry. HEAD: Atraumatic. Normocephalic. EYES: No scleral icterus. No injection or drainage. ENT: Nose without bleeding, purulent drainage. NECK: Trachea midline. No JVD or lymphadenopathy. CARDIOVASCULAR: Regular rate and rhythm without murmurs, gallops, or rubs. RESPIRATORY: Clear to auscultation. Breath sounds equal bilaterally. No wheezes , rales, or rhonchi. GASTROINTESTINAL: Abdomen soft, non-tender, nondistended. No guarding. MUSCULOSKELETAL: Extremities without clubbing, cyanosis, or edema. No calf tenderness. NEUROLOGICAL: Awake and alert. Motor and sensory grossly within normal limits. Normal speech. The patient is very confused and provides contradictory history. . Laboratory Laboratory Tests Test 05/31/16 05/31/16 19:35 19:50 Urine Color YELLOW Urine Turbidity CLEAR Urine pH 5.0 Urine Specific [place] 1.020 Urine Protein NEG Urine Glucose (UA) NEG Urine Ketones NEG Urine Occult Blood NEG Urine Nitrite NEG Urine Bilirubin NEG Urine Urobilinogen LESS THAN 2.0 Urine Leukocyte Esterase NEG Urine RBC LESS THAN 1 Urine WBC LESS THAN 1 Urine Hyaline Casts 1 Urine Mucus FEW Microscopic Urinalysis Comment CULT NOT INDICATED White Blood Count 3.0 Red Blood Count 4.14 Hemoglobin 13.3 Hematocrit 39.5 Mean Corpuscular Volume 95.4 Mean Corpuscular Hemoglobin 32.1 Mean Corpuscular Hemoglobin 33.7 Concent Red Cell Distribution Width 13.8 Platelet Count 165 Mean Platelet Volume 8.1 Neutrophils (%) (Auto) Lymphocytes (%) (Auto) Monocytes (%) (Auto) Eosinophils (%) (Auto) Basophils (%) (Auto) Neutrophils # (Auto) Lymphocytes # (Auto) Monocytes # (Auto) Eosinophils # (Auto) Basophils # (Auto) CBC Comment AUTO DIFF Differential Total Cells 100 Counted Neutrophils % (Manual) 10 Band Neutrophils % 1 Lymphocytes % 56 Monocytes % 28 Eosinophils % 4 Basophils % 1 Neutrophils # (Manual) 0.3 Differential Comment FINAL DIFF MANUAL Platelet Estimate NORMAL Platelet Morphology Comment NORMAL Acanthocytes OCC Prothrombin Time 18.6 Prothromb Time International 1.6 Ratio Activated Partial 26.4 Thromboplast Time Sodium Level 147 Potassium Level 2.8 Chloride Level 116 Carbon Dioxide Level 22.7 Anion Gap 8 Blood Urea Nitrogen 18 Creatinine 0.73 Estimat Glomerular Filtration 102 Rate Random Glucose 74 Lactic Acid Level 1.3 Calcium Level 6.1 Protein Corrected Calcium 7.3 Total Bilirubin 0.4 Aspartate Amino Transf 12 (AST/SGOT) Alanine Aminotransferase 21 (ALT/SGPT) Alkaline Phosphatase 32 Total Creatine Kinase 55 Troponin I 0.03 Total Protein 4.5 Albumin 2.5 Lipase 97 Thyroid Stimulating Hormone 2.090 3rd Gen Result Diagram: 05/31/16 1950 05/31/16 1950 Imaging Last Impressions Head CT 05/31/161918 Signed Impressions: Service Date/Time: Tuesday, May 31, 2016 21:26 - CONCLUSION: 1. Extensive nonspecific white matter changes. 2. Prominent area of low-density in the midbrain of uncertain etiology. Nonemergent contrasted MRI of the brain recommended. Johnson Salinas MD Abdomen/Pelvis CT 05/31/161918 Signed Impressions: Service Date/Time: Tuesday, May 31, 2016 21:26 - CONCLUSION: 1. Diverticulosis without diverticulitis. 2. Unchanged cholelithiasis. 3. Unchanged hepatic low-density lesions in bilateral renal cysts. Johnson Salinas MD Chest X-Ray 05/31/161913 Signed Impressions: Service Date/Time: Tuesday, May 31, 2016 19:37 - CONCLUSION: 1. Elevation right hemidiaphragm, chronic. 2. Right basilar subsegmental atelectasis versus scarring. 3. Cardiomegaly and left-sided pacemaker. Johnson Salinas MD Assessment and Plan Problem List: (1) Encephalopathy ICD Code: G93.40 Status: Acute (2) Atrial fibrillation ICD Code: I48.91 Status: Chronic (3) Neutropenia ICD Code: D70.9 Status: Acute (4) Hypokalemia ICD Code: E87.6 Status: Acute (5) Hypocalcemia ICD Code: E83.51 Status: Acute (6) Hypernatremia ICD Code: E87.0 Status: Acute Assessment and Plan Mr. Fernandez is an 85-year-old male with a past medical history of atrial fibrillation on Coumadin, coronary artery disease status post cardiac stents, hypertension, sick sinus syndrome status post permanent pacemaker placement, sleep apnea, hyperlipidemia, gastroesophageal reflux disease, BPH, nephrolithiasis, osteoporosis, gout, splenic infarct, diverticulosis/ diverticulitis, asthmatic bronchitis, and colon cancer status post colon resection who presented to the emergency room 05/31/2016 after neighbors found him to have altered mental status. CT of abdomen and pelvis shows diverticulosis without diverticulitis. Unchanged cholelithiasis. Unchanged hepatic low-density lesions and bilateral renal cysts. Head CT with extensive nonspecific white matter changes and prominent area of low density in the mid brain of uncertain etiology. Contrasted MRI of the brain recommended. Chest x- ray shows elevation of right marco-diaphragm which is chronic, right basilar subsegmental atelectasis versus scarring. Cardiomegaly and left-sided pacemaker. WBC low at 3.0 and neutropenia noted with critically low neutrophil number. Encephalopathy metabolic vs infectious process - TSH within normal parameters - Neuro checks every 4 hours - Brain MRI with and without contrast - Urinalysis within normal parameters; culture not indicated - Cefepime 2 g IV every 8 hours Chronic atrial fibrillation on Coumadin - INR subtherapeutic at 1.6 - Lovenox 40 mg every 24 hours subcutaneously Leukopenia with neutropenia - Neutropenic precautions - Consider consulting Dr. Vega she's followed him in the past for splenic infarction Severe hypokalemia - Replace potassium - Recheck potassium level and follow trends and replace as indicated Hypernatremia - Sodium 147 on admission - Recheck sodium level and follow trends- start on hypotonic sodium solution if needed Hypocalcemia - Replace calcium - Recheck calcium level and replace as indicated Written by Mili Dennison, acting as scribe for Dr. Theodore on 06/01/16 at 01:12. The documentation accurately reflects the work performed [id number] by me on [id number] Discussed Condition With ER PA and RN . Physician Certification 2 Midnight Certification Type: Admission for Inpatient Services Order for Inpatient Services The services are ordered in accordance with Medicare regulations or non- Medicare payer requirements, as applicable. In the case of services not specified as inpatient-only, they are appropriately provided as inpatient services in accordance with the 2-midnight benchmark. Estimated LOS (days): 3 days is the estimated time the patient will need to remain in the hospital, assuming treatment plan goals are met and no additional complications. Post-Hospital Plan: Not yet determined Problem Qualifiers (1) Neutropenia: Qualified Code: D70.9 - Neutropenia, unspecified type Mili Dennison Jun 01, 2016 01:13 Marcella Theodore MD Jun 01, 2016 08:38
[2016-06-01] MEDS: CEFEPIME INJ 2,000 MG in SODIUM CHLORIDE 0.9% INJ 100 ML IV SCH ×3 (06:00→21:50)
[2016-06-01 06:54] LABS: AUTOMATED NEUTROPHIL # 0.4 TH/MM3 (1.8-7.7); BASOPHIL % 1.5 % (0.0-2.0); EOSINOPHIL # 0.1 TH/MM3 (0-0.4); HEMATOCRIT 43.3 % (39.0-51.0); LYMPH % 48.6 % (9.0-44.0); LYMPHOCYTE # 1.3 TH/MM3 (1.0-4.8); MEAN CELL VOLUME 95.3 FL (80.0-100.0); MEAN CORPUSCULAR HEMOGLOBIN 32.4 PG (27.0-34.0); MONO % 32.4 % (0.0-8.0); NEUT % 15.5 % (16.0-70.0); PLATELET COUNT 181 TH/MM3 (150-450); RED BLOOD COUNT 4.54 MIL/MM3 (4.50-5.90); RED CELL DISTRIBUTION WIDTH 13.9 % (11.6-17.2); WHITE BLOOD COUNT 2.7 TH/MM3 (4.0-11.0)
[2016-06-01 07:09] LABS: HEMO FLAGS AUTO DIFF
[2016-06-01 07:35] LABS: ALKALINE PHOSPHATASE 49 U/L (45-117); ALT (GPT) 32 U/L (12-78); ANION GAP 8 MEQ/L (5-15); AST (GOT) 30 U/L (15-37); BICARBONATE 29.3 MEQ/L (21.0-32.0); BLOOD UREA NITROGEN 20 MG/DL (7-18); CHLORIDE 104 MEQ/L (98-107); GLOMERULAR FILTRATION RATE 68 ML/MIN (>89); POTASSIUM 4.2 MEQ/L (3.5-5.1); SODIUM (NA) 141 MEQ/L (136-145); TOTAL BILIRUBIN ADULT 0.8 MG/DL (0.2-1.0)
[2016-06-01 08:26] LABS: BANDS 6 % (0-6); BASOPHILS 3 % (0-2); CORRECTED NUCLEATED RBC 1 /100 WBC (0-0); EOSINOPHILS 2 % (0-4); MYELOCYTES 2 % (0-0); NEUTROPHIL # MANUAL DIFF 0.4 TH/MM3 (1.8-7.7); POLYS (SEG NEUTROPHILS) 8 % (16-70); WBC DIFF SAMPLE 100
[2016-06-01 08:27] LABS: OVALOCYTES 1+ (NORMAL); PLATELET ESTIMATE SMEAR NORMAL (NORMAL); PLATELET MORPHOLOGY NORMAL (NORMAL)
[2016-06-01 08:28] LABS: SCAN/DIFF FINAL DIFF MANUAL
[2016-06-01] MEDS ORDERED: ENOXAPARIN SODIUM 40 MG/0.4 ML SYRINGE SQ SCH (09:00)
[2016-06-01] MEDS ORDERED: OMEP40CA2 PO (09:40)
[2016-06-01] MEDS: SODIUM CHLORIDE 0.9% FLUSH 5 ML FLUSH FLUSH SCH ×2 (09:41→19:57)
--- NOTE | 2016-06-01 11:51 | EKG ---
Date Performed: 05/31/2016 Time Performed: 21:49:29 PTAGE: 85 years EK% atrial fibrillation, the underlying rhythm is difficult to discern The old tracing jodie wed atrial fibrillation. ABNORMAL RHYTHM ECG PREVIOUS TRACING : 06/22/2014 13.04.04 DOCTOR: Edgar Ohara Interpretating Date/Time 06/01/2016 11:50:19
--- NOTE | 2016-06-01 11:52 | EKG ---
Date Performed: 05/31/2016 Time Performed: 21:51:53 PTAGE: 85 years EK% Ventricular Pacing One fusion beat Underlying atrial rhythm is difficult to discern bu t suspect possible atrial fibrillation. ABNORMAL RHYTHM ECG PREVIOUS TRACING : 05/31/2016 21.49 DOCTOR: Edgar Ohara Interpretating Date/Time 06/01/2016 11:51:18
[2016-06-01] MEDS: FUROSEMIDE 40 MG TAB PO SCH (12:51)
--- NOTE | 2016-06-01 13:12 | HHI.PR ---
Subjective Remarks Follow-up encephalopathy/neutropenia 06/01/16-patient seen and examined, alert however remained confused. BP elevated. Objective Vitals Vital Signs Date Time Temp Pulse Resp B/P Pulse Ox O2 Delivery O2 Flow Rate FiO2 06/01/16 12:47 78 16 195/89 97 Room Air 06/01/16 12:25 96 16 197/92 97 Room Air 06/01/16 11:52 68 16 94 Room Air 06/01/16 11:52 65 16 168/70 97 Room Air 06/01/16 10:16 98.5 06/01/16 09:40 100 20 180/87 99 Room Air 05/31/16 20:14 67 20 165/87 98 Room Air 05/31/16 19:22 20 05/31/16 19:15 98.5 65 20 168/79 96 I/O 05/31/16 05/31/16 05/31/16 06/01/16 06/01/16 06/01/16 07:00 15:00 23:00 07:00 15:00 23:00 Intake Total 1000 ml Output Total 300 ml Balance 700 ml Intake IV Total 1000 ml Output Urine Total 300 ml # Voids 1 Result Diagram: 06/01/16 0535 06/01/16 0535 Imaging Last Impressions Head CT 05/31/161918 Signed Impressions: Service Date/Time: Tuesday, May 31, 2016 21:26 - CONCLUSION: 1. Extensive nonspecific white matter changes. 2. Prominent area of low-density in the midbrain of uncertain etiology. Nonemergent contrasted MRI of the brain recommended. Johnson Salinas MD Abdomen/Pelvis CT 05/31/161918 Signed Impressions: Service Date/Time: Tuesday, May 31, 2016 21:26 - CONCLUSION: 1. Diverticulosis without diverticulitis. 2. Unchanged cholelithiasis. 3. Unchanged hepatic low-density lesions in bilateral renal cysts. Johnson Salinas MD Chest X-Ray 05/31/161913 Signed Impressions: Service Date/Time: Tuesday, May 31, 2016 19:37 - CONCLUSION: 1. Elevation right hemidiaphragm, chronic. 2. Right basilar subsegmental atelectasis versus scarring. 3. Cardiomegaly and left-sided pacemaker. Johnson Salinas MD Objective Remarks GENERAL: NAD SKIN: Warm and dry. HEAD: Normocephalic. EYES: No scleral icterus. No injection or drainage. NECK: Supple, trachea midline. No JVD or lymphadenopathy. CARDIOVASCULAR: Irregular Regular rate and rhythm without murmurs, gallops, or rubs. RESPIRATORY: Breath sounds equal bilaterally. No accessory muscle use. GASTROINTESTINAL: Abdomen soft, non-tender, nondistended. MUSCULOSKELETAL: No cyanosis, or edema. BACK: Nontender without obvious deformity. No CVA tenderness. A/P Problem List: (1) Encephalopathy ICD Code: G93.40 Status: Acute (2) Atrial fibrillation ICD Code: I48.91 Status: Chronic (3) Neutropenia ICD Code: D70.9 Status: Acute (4) Hypokalemia ICD Code: E87.6 Status: Acute (5) Hypocalcemia ICD Code: E83.51 Status: Acute (6) Hypernatremia ICD Code: E87.0 Status: Acute Assessment and Plan 85-year-old male with Encephalopathy metabolic vs infectious process - TSH within normal parameters - Neuro checks every 4 hours - Brain MRI with and without contrast - Urinalysis within normal parameters; culture not indicated - Cefepime 2 g IV every 8 hours Chronic atrial fibrillation on Coumadin - INR subtherapeutic at 1.6 - Lovenox 40 mg every 24 hours subcutaneously Leukopenia with neutropenia - Neutropenic precautions - Consider consulting Dr. Vega she's followed him in the past for splenic infarction Severe hypokalemia - Replace potassium - Recheck potassium level and follow trends and replace as indicated Atrial fibrillation: Resume beta von, Coumadin. Monitor INR/PT Hypertension: Labile BP; resume outpatient medications Hypernatremia - Sodium 147 on admission - Recheck sodium level and follow trends- start on hypotonic sodium solution if needed Hypocalcemia - Replace calcium - Recheck calcium level and replace as indicated Problem Qualifiers (1) Neutropenia: Qualified Code: D70.9 - Neutropenia, unspecified type Johnson Vallejo MD Jun 01, 2016 13:12
[2016-06-01] MEDS ORDERED: DO NOT ADM ANY ANTICOAGULANT DRUGS XX PRN (13:45)
[2016-06-01] MEDS: METOPROLOL TARTRATE 50 MG TAB PO SCH (14:09)
[2016-06-01] MEDS: LOSARTAN 50 MG TAB PO SCH (14:09)
[2016-06-01] MEDS: DOXAZOSIN MESYLATE 4 MG TAB PO SCH (14:49)
[2016-06-01] MEDS: WARFARIN SOD 7.5 MG TAB PO SCH (16:41)
--- NOTE | 2016-06-01 20:20 | EKG ---
Date Performed: 06/01/2016 Time Performed: 10:11:58 PTAGE: 85 years EKG: ATRIAL FIBRILLATION WITH CONTROL VENTRICULAR RATE NONSPECIFIC ST-T WAVE CHANGES NO PACING S EEN WHEN COMPARED TO PRIOR TRACING. ABNORMAL ECG PREVIOUS TRACING : 05/31/2016 21.51 DOCTOR: Edgar Ohara Interpretating Date/Time 06/01/2016 20:19:33
[2016-06-02] VITALS: BP 134/78; PULSE 74; RESP 20; TEMP 97.2; O2SAT 96
[2016-06-02 04:00] VITALS: BP 131/80; PULSE 78; RESP 20; TEMP 98; O2SAT 95
[2016-06-02 05:01] LABS: INTERNATIONAL NORMALIZED RATIO 1.5 RATIO; PROTHROMBIN TIME - PATIENT 16.8 SEC (9.8-11.6)
[2016-06-02] MEDS: CEFEPIME INJ 2,000 MG in SODIUM CHLORIDE 0.9% INJ 100 ML IV SCH ×3 (05:25→21:32)
[2016-06-02 08:00] VITALS: BP 161/77; PULSE 68; RESP 18; TEMP 97; O2SAT 98
[2016-06-02] MEDS: DOXAZOSIN MESYLATE 4 MG TAB PO SCH (09:36)
[2016-06-02] MEDS: FUROSEMIDE 40 MG TAB PO SCH (09:36)
[2016-06-02] MEDS: LOSARTAN 50 MG TAB PO SCH (09:36)
[2016-06-02] MEDS: METOPROLOL TARTRATE 50 MG TAB PO SCH (09:36)
[2016-06-02] MEDS: SODIUM CHLORIDE 0.9% FLUSH 5 ML FLUSH FLUSH SCH ×2 (09:37→21:32)
--- NOTE | 2016-06-02 09:44 | HHI.PR ---
Subjective Remarks Follow-up encephalopathy/neutropenia 06/01/16-patient seen and examined, alert however remained confused. BP elevated. 06/02/16-patient seen and examined alert and oriented to self not place or date. Very pleasant. Per nurse report patient has been wandering outside of his room Objective Vitals Vital Signs Date Time Temp Pulse Resp B/P Pulse Ox O2 Delivery O2 Flow Rate FiO2 06/02/16 08:00 97.0 68 18 161/77 98 06/02/16 04:00 98.0 78 20 131/80 95 06/02/16 00:00 97.2 74 20 134/78 96 06/01/16 20:00 96.8 76 18 140/72 95 06/01/16 15:00 95.8 72 17 136/71 94 06/01/16 14:49 60 18 165/77 95 Room Air 06/01/16 14:07 83 18 220/91 98 Room Air 06/01/16 12:47 78 16 195/89 97 Room Air 06/01/16 12:25 96 16 197/92 97 Room Air 06/01/16 11:52 68 16 94 Room Air 06/01/16 11:52 65 16 168/70 97 Room Air 06/01/16 10:16 98.5 I/O 06/01/16 06/01/16 06/01/16 06/02/16 06/02/16 06/02/16 06:59 14:59 22:59 06:59 14:59 22:59 Intake Total 480 ml Output Total 650 ml Balance -170 ml Intake Oral 480 ml Output Urine Total 650 ml # Bowel Movements 0 Result Diagram: 06/01/16 0535 06/01/16 0535 Imaging Last Impressions Head CT 05/31/161918 Signed Impressions: Service Date/Time: Tuesday, May 31, 2016 21:26 - CONCLUSION: 1. Extensive nonspecific white matter changes. 2. Prominent area of low-density in the midbrain of uncertain etiology. Nonemergent contrasted MRI of the brain recommended. Johnson Salinas MD Abdomen/Pelvis CT 05/31/161918 Signed Impressions: Service Date/Time: Tuesday, May 31, 2016 21:26 - CONCLUSION: 1. Diverticulosis without diverticulitis. 2. Unchanged cholelithiasis. 3. Unchanged hepatic low-density lesions in bilateral renal cysts. Johnson Salinas MD Chest X-Ray 05/31/161913 Signed Impressions: Service Date/Time: Tuesday, May 31, 2016 19:37 - CONCLUSION: 1. Elevation right hemidiaphragm, chronic. 2. Right basilar subsegmental atelectasis versus scarring. 3. Cardiomegaly and left-sided pacemaker. Johnson Salinas MD Objective Remarks GENERAL: NAD SKIN: Warm and dry. HEAD: Normocephalic. EYES: No scleral icterus. No injection or drainage. NECK: Supple, trachea midline. No JVD or lymphadenopathy. CARDIOVASCULAR: Irregular Regular rate and rhythm without murmurs, gallops, or rubs. RESPIRATORY: Breath sounds equal bilaterally. No accessory muscle use. GASTROINTESTINAL: Abdomen soft, non-tender, nondistended. MUSCULOSKELETAL: No cyanosis, or edema. BACK: Nontender without obvious deformity. No CVA tenderness. A/P Problem List: (1) Encephalopathy ICD Code: G93.40 Status: Acute (2) Atrial fibrillation ICD Code: I48.91 Status: Chronic (3) Neutropenia ICD Code: D70.9 Status: Acute (4) Hypokalemia ICD Code: E87.6 Status: Acute (5) Hypocalcemia ICD Code: E83.51 Status: Acute (6) Hypernatremia ICD Code: E87.0 Status: Acute Assessment and Plan 85-year-old male with Encephalopathy metabolic vs infectious process versus dementia - TSH within normal parameters - Neuro checks every 4 hours - Head CT noted in review - Urinalysis within normal parameters; culture not indicated - Currently on Cefepime 2 g IV every 8 hours however if blood culture remain negative will discontinue antibiotics Chronic atrial fibrillation on Coumadin - INR subtherapeutic at 1.6 - Lovenox 40 mg every 24 hours subcutaneously Neutropenia - Neutropenic precautions - Consider consulting Dr. 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 Monitor INR/PT Hypertension: Normotensive and continue outpatient medications Hypernatremia -resolved Hypocalcemia -resolved status post replaced Problem Qualifiers (1) Neutropenia: Qualified Code: D70.9 - Neutropenia, unspecified type Johnson Vallejo MD Jun 02, 2016 09:44
[2016-06-02 12:00] VITALS: BP 154/74; PULSE 61; RESP 17; TEMP 96.6; O2SAT 96
[2016-06-02] MEDS ORDERED: DOCUSATE SODIUM 50 MG/SENNA 8.6 MG TAB PO PRN (13:30)
[2016-06-02] MEDS ORDERED: MAGNESIUM HYDROXIDE SUSP 30 ML CUP PO PRN (13:30)
[2016-06-02] MEDS ORDERED: BISACODYL 10 MG SUPP PR PRN (13:30)
[2016-06-02 16:00] VITALS: BP 160/77; PULSE 60; RESP 17; TEMP 97.5; O2SAT 97
[2016-06-02] MEDS ORDERED: WARFARIN SOD 5 MG TAB PO SCH (16:00)
[2016-06-02 20:37] VITALS: BP 138/81; PULSE 71; RESP 18; TEMP 95.7; O2SAT 95
[2016-06-03 03:56] VITALS: BP 157/77; PULSE 73; RESP 18; TEMP 97; O2SAT 97
[2016-06-03] MEDS: CEFEPIME INJ 2,000 MG in SODIUM CHLORIDE 0.9% INJ 100 ML IV SCH (04:55)
[2016-06-03 08:00] VITALS: BP 141/65; PULSE 79; RESP 18; TEMP 97.8; O2SAT 92
[2016-06-03 08:02] LABS: INTERNATIONAL NORMALIZED RATIO 1.5 RATIO; PROTHROMBIN TIME - PATIENT 16.9 SEC (9.8-11.6)
[2016-06-03 08:09] LABS: AUTOMATED NEUTROPHIL # 2.8 TH/MM3 (1.8-7.7); BASOPHIL % 0.3 % (0.0-2.0); EOSINOPHIL % 0.6 % (0.0-4.0); HEMATOCRIT 42.6 % (39.0-51.0); HEMO FLAGS DIFF FINAL; LYMPH % 23.1 % (9.0-44.0); LYMPHOCYTE # 1.1 TH/MM3 (1.0-4.8); MEAN CELL VOLUME 93.2 FL (80.0-100.0); MEAN CORPUSCULAR HEMOGLOBIN 31.9 PG (27.0-34.0); MEAN CORPUSCULAR HGB CONC 34.2 % (32.0-36.0); MONO % 19.4 % (0.0-8.0); NEUT % 56.6 % (16.0-70.0); PLATELET COUNT 167 TH/MM3 (150-450); RED BLOOD COUNT 4.56 MIL/MM3 (4.50-5.90); RED CELL DISTRIBUTION WIDTH 13.7 % (11.6-17.2)
[2016-06-03] MEDS: SODIUM CHLORIDE 0.9% FLUSH 5 ML FLUSH FLUSH SCH (08:46)
[2016-06-03] MEDS: METOPROLOL TARTRATE 50 MG TAB PO SCH (08:46)
[2016-06-03] MEDS: FUROSEMIDE 40 MG TAB PO SCH (08:46)
[2016-06-03] MEDS: DOXAZOSIN MESYLATE 4 MG TAB PO SCH (08:46)
[2016-06-03] MEDS: LOSARTAN 50 MG TAB PO SCH (08:46)
--- NOTE | 2016-06-03 10:16 | HHI.FF ---
Face to Face Verification Diagnosis: (1) Neutropenia (2) Encephalopathy (3) Atrial fibrillation (4) Hypertension Physical Therapy Order: Evaluate and Treat Home Health Nursing Order: Signs/symptoms of disease process I have seen patient Yonas Fernandez on 06/03/16. My clinical findings support the need for the requested home health care services because: Deconditioned w/ increased weakness I certify that my clinical findings support that this patient is homebound because: Poor cardiac reserve Johnson Vallejo MD Jun 03, 2016 10:16
--- NOTE | 2016-06-03 10:19 | HHI.PR ---
Subjective Remarks Follow-up encephalopathy/neutropenia 06/01/16-patient seen and examined, alert however remained confused. BP elevated. 06/02/16-patient seen and examined alert and oriented to self not place or date. Very pleasant. Per nurse report patient has been wandering outside of his room 06/03/16-patient seen and examined; alert and oriented to self and very pleasant. WBC improved and neutropenia resolved. No acute event overnight. Afebrile. Case discussed with dependency case manager regarding discharge disposition today. Objective Vitals Vital Signs Date Time Temp Pulse Resp B/P Pulse Ox O2 Delivery O2 Flow Rate FiO2 06/03/16 08:00 97.8 79 18 141/65 92 06/03/16 03:56 97.0 73 18 157/77 97 06/02/16 20:37 95.7 71 18 138/81 95 06/02/16 16:00 97.5 60 17 160/77 97 06/02/16 12:00 96.6 61 17 154/74 96 I/O 06/02/16 06/02/16 06/02/16 06/03/16 06/03/16 06/03/16 07:00 15:00 23:00 07:00 15:00 23:00 Intake Total 480 ml 670 ml 380 ml Output Total 650 ml 600 ml Balance -170 ml -600 ml 670 ml 380 ml Intake Oral 480 ml 580 ml 380 ml IV Total 90 ml Output Urine Total 650 ml 600 ml # Voids 2 2 # Bowel Movements 0 1 Result Diagram: 06/03/16 0722 06/01/16 0535 Imaging Last Impressions Head CT 05/31/161918 Signed Impressions: Service Date/Time: Tuesday, May 31, 2016 21:26 - CONCLUSION: 1. Extensive nonspecific white matter changes. 2. Prominent area of low-density in the midbrain of uncertain etiology. Nonemergent contrasted MRI of the brain recommended. Johnson Salinas MD Abdomen/Pelvis CT 05/31/161918 Signed Impressions: Service Date/Time: Tuesday, May 31, 2016 21:26 - CONCLUSION: 1. Diverticulosis without diverticulitis. 2. Unchanged cholelithiasis. 3. Unchanged hepatic low-density lesions in bilateral renal cysts. Johnson Salinas MD Chest X-Ray 05/31/161913 Signed Impressions: Service Date/Time: Tuesday, May 31, 2016 19:37 - CONCLUSION: 1. Elevation right hemidiaphragm, chronic. 2. Right basilar subsegmental atelectasis versus scarring. 3. Cardiomegaly and left-sided pacemaker. Johnson Salinas MD Objective Remarks GENERAL: NAD SKIN: Warm and dry. HEAD: Normocephalic. EYES: No scleral icterus. No injection or drainage. NECK: Supple, trachea midline. No JVD or lymphadenopathy. CARDIOVASCULAR: Irregular Regular rate and rhythm without murmurs, gallops, or rubs. RESPIRATORY: Breath sounds equal bilaterally. No accessory muscle use. GASTROINTESTINAL: Abdomen soft, non-tender, nondistended. MUSCULOSKELETAL: No cyanosis, or edema. BACK: Nontender without obvious deformity. No CVA tenderness. Procedures none A/P Problem List: (1) Encephalopathy ICD Code: G93.40 Status: Resolved (2) Atrial fibrillation ICD Code: I48.91 Status: Chronic (3) Neutropenia ICD Code: D70.9 Status: Resolved (4) Hypokalemia ICD Code: E87.6 Status: Resolved (5) Hypocalcemia ICD Code: E83.51 Status: Resolved (6) Hypernatremia ICD Code: E87.0 Status: Resolved Assessment and Plan 85-year-old male with Encephalopathy metabolic vs infectious process versus dementia-improved - TSH within normal parameters - Neuro checks every 4 hours - Head CT noted in review - Urinalysis within normal parameters; culture not indicated - Currently on Cefepime 2 g IV every 8 hours however has blood culture remained negative therefore will discontinue all antibiotics Chronic atrial fibrillation on Coumadin - INR subtherapeutic at 1.5 - Lovenox 40 mg every 24 hours subcutaneously Neutropenia -resolved Leukopenia-resolved Severe hypokalemia -resolved status post replacement Atrial fibrillation: rate controlled on beta von, Coumadin. Monitor INR/PT Hypertension: Normotensive and continue outpatient medications Hypernatremia -resolved Hypocalcemia -resolved status post replaced Problem Qualifiers (1) Neutropenia: Qualified Code: D70.9 - Neutropenia, unspecified type Johnson Vallejo MD Jun 03, 2016 10:19
--- NOTE | 2016-06-03 10:26 | HHI.DS ---
Discharge Summary Admission Date May 31, 2016 at 22:19 Discharge Date: Jun 03, 2016 Admitting Diagnosis altered mental status, neutropenia, lower abdominal pain (1) Encephalopathy ICD Code: G93.40 (2) Atrial fibrillation ICD Code: I48.91 (3) Neutropenia ICD Code: D70.9 (4) Hypokalemia ICD Code: E87.6 (5) Hypocalcemia ICD Code: E83.51 (6) Hypernatremia ICD Code: E87.0 Procedures none Brief History - From Admission Mr. Fernandez is an 85-year-old male with a past medical history of atrial fibrillation on Coumadin, coronary artery disease status post cardiac stents, hypertension, sick sinus syndrome status post permanent pacemaker placement, sleep apnea, hyperlipidemia, gastroesophageal reflux disease, BPH, nephrolithiasis, osteoporosis, gout, splenic infarct, diverticulosis/ diverticulitis, and asthmatic bronchitis who presented to the emergency room 03/2017 after neighbors found him to have altered mental status. CT of abdomen and pelvis shows diverticulosis without diverticulitis. Unchanged cholelithiasis. Unchanged hepatic low-density lesions and bilateral renal cysts. Head CT with extensive nonspecific white matter changes and prominent area of low density in the mid brain of uncertain etiology. Contrasted MRI of the brain recommended. Chest x-ray shows elevation of right marco-diaphragm which is chronic, right basilar subsegmental atelectasis versus scarring. Cardiomegaly and left-sided pacemaker. WBC low at 3.0 and neutropenia noted with critically low neutrophil number. The patient is seen in the emergency room. He provides answers to questions that are not consistent with his history or information in his medical record. Therefore, HPI and medical history brought forward from the electronic medical record and discussion with healthcare providers. . CBC/BMP: 06/03/16 0722 06/01/16 0535 Significant Findings Laboratory Tests Test 05/31/16 05/31/16 06/01/16 06/02/16 19:35 19:50 05:35 04:32 Urine Mucus FEW /lpf (OCC) White Blood Count 3.0 TH/MM3 2.7 TH/MM3 (4.0-11.0) (4.0-11.0) Red Blood Count 4.14 MIL/MM3 (4.50-5.90) Neutrophils % (Manual) 10 % (16-70) 8 % (16-70) Lymphocytes % 56 % (9-44) 62 % (9-44) Monocytes % 28 % (0-8) 17 % (0-8) Neutrophils # (Manual) 0.3 TH/MM3 0.4 TH/MM3 (1.8-7.7) (1.8-7.7) Prothrombin Time 18.6 SEC 16.8 SEC (9.8-11.6) (9.8-11.6) Sodium Level 147 MEQ/L (136-145) Potassium Level 2.8 MEQ/L (3.5-5.1) Chloride Level 116 MEQ/L (98-107) Calcium Level 6.1 MG/DL (8.5-10.1) Protein Corrected Calcium 7.3 MG/DL (8.5-10.1) Aspartate Amino Transf 12 U/L (15-37) (AST/SGOT) Alkaline Phosphatase 32 U/L (45-117) Total Protein 4.5 GM/DL (6.4-8.2) Albumin 2.5 GM/DL (3.4-5.0) Neutrophils (%) (Auto) 15.5 % (16.0-70.0) Lymphocytes (%) (Auto) 48.6 % (9.0-44.0) Monocytes (%) (Auto) 32.4 % (0.0-8.0) Neutrophils # (Auto) 0.4 TH/MM3 (1.8-7.7) Basophils % 3 % (0-2) Myelocytes 2 % (0-0) Nucleated Red Blood Cells 1 /100 WBC (0-0) Ovalocytes 1+ (NORMAL) Blood Urea Nitrogen 20 MG/DL (7-18) Estimat Glomerular Filtration 68 ML/MIN (>89) Rate Test 06/03/16 07:22 Monocytes (%) (Auto) 19.4 % (0.0-8.0) Monocytes # (Auto) 1.0 TH/MM3 (0-0.9) Prothrombin Time 16.9 SEC (9.8-11.6) Imaging Last Impressions Head CT 05/31/161918 Signed Impressions: Service Date/Time: Tuesday, May 31, 2016 21:26 - CONCLUSION: 1. Extensive nonspecific white matter changes. 2. Prominent area of low-density in the midbrain of uncertain etiology. Nonemergent contrasted MRI of the brain recommended. Johnson Salinas MD Abdomen/Pelvis CT 05/31/161918 Signed Impressions: Service Date/Time: Sunday, May 31, 2016 21:26 - CONCLUSION: 1. Diverticulosis without diverticulitis. 2. Unchanged cholelithiasis. 3. Unchanged hepatic low-density lesions in bilateral renal cysts. Johnson Salinas MD Chest X-Ray 05/31/161913 Signed Impressions: Service Date/Time: Sunday, May 31, 2016 19:37 - CONCLUSION: 1. Elevation right hemidiaphragm, chronic. 2. Right basilar subsegmental atelectasis versus scarring. 3. Cardiomegaly and left-sided pacemaker. Johnsno Salinas MD PE at Discharge GENERAL: NAD SKIN: Warm and dry. HEAD: Normocephalic. EYES: No scleral icterus. No injection or drainage. NECK: Supple, trachea midline. No JVD or lymphadenopathy. CARDIOVASCULAR: Irregular Regular rate and rhythm without murmurs, gallops, or rubs. RESPIRATORY: Breath sounds equal bilaterally. No accessory muscle use. GASTROINTESTINAL: Abdomen soft, non-tender, nondistended. MUSCULOSKELETAL: No cyanosis, or edema. BACK: Nontender without obvious deformity. No CVA tenderness. Hospital Course Patient admitted secondary to encephalopathy was started on IV antibiotic of monitoring of cultures which remained negative prior to discharge and antibiotics discontinued.. He has multiple electrolyte abnormalities which were corrected accordingly. CBC was monitoring daily secondary to neutropenia which resolved prior to discharge. His mentation improved. His medication for other chronic medical conditions were resumed. Physical therapy was consulted. Vitals were monitored as well as INR/PT as patient' s Coumadin was resumed. Prior to discharge, patient's condition improved. Pt Condition on Discharge: Stable Discharge Disposition: Discharge to SNF Discharge Time: > 30 minutes Discharge Instructions Follow up Referrals: PCP Follow-up - 1 Week New Orders: PT/INR - Daily Continued Medications: Allopurinol (Allopurinol) 100 Mg Tab 100 MG PO DAILY Gout #30 Ref 0 TAB Amlodipine (Norvasc) 10 Mg Tab 10 MG PO DAILY Blood Pressure Management #30 Ref 0 TAB Doxazosin (Cardura) 4 Mg Tab 4 MG PO DAILY #30 Ref 0 TAB Furosemide (Lasix) 40 Mg Tab 40 MG PO DAILY #30 Ref 0 TAB Irbesartan (Avapro) 300 Mg Tab 300 MG PO DAILY Blood Pressure Management #30 Ref 0 TAB Metoprolol Tartrate (Lopressor) 50 Mg Tab 50 MG PO DAILY #30 Ref 0 TAB Modafinil (Provigil) 200 Mg Tab 200 MG PO DAILY PRN DROWSINESS Ref 0 TAB Omeprazole (Omeprazole) 40 Mg Cap 40 MG PO DAILY #30 Ref 0 CAP Potassium Chloride ER (Klor-Con 8) 8 Meq Tab 8 MEQ PO TID Electrolyte Replacement #60 Ref 0 TAB Simvastatin (Zocor) 40 Mg Tab 40 MG PO HS Cholesterol Management #30 Ref 0 TAB Warfarin (Coumadin) 5 Mg Tab 5 MG PO MOFR Take 1 tablet (5mg) on Sunday and Sunday Blood Clot Prevention #30 Ref 0 TAB Warfarin (Coumadin) 7.5 Mg Tab 7.5 MG PO SUTUWETHSA Take 1 tablet (7.5mg) on Sunday,Sunday,Sunday, and Sunday Prevent Blood Clot #30 Ref 0 TAB Discontinued Medications: Ciprofloxacin (Cipro) 500 Mg Tab 500 MG PO BID Infection Days 10 Ref 0 TAB Hydrocodone-Acetaminophen (Lortab) 5-325 Mg Tab 1-2 TAB PO Q6H PRN PAIN #12 TAB Metronidazole (Flagyl) 500 Mg Tab 500 MG PO TID Infection Days 10 Ref 0 TAB Zolpidem (Zolpidem) 10 Mg Tab 10 MG PO HS PRN INSOMNIA Ref 0 TAB Johnson Vallejo MD Jun 03, 2016 10:26
[2016-06-03 12:00] VITALS: BP 131/60; PULSE 72; RESP 16; TEMP 95.8; O2SAT 95
[2016-06-03] MEDS: WARFARIN SOD 7.5 MG TAB PO SCH (15:53)
[2016-06-03 16:00] VITALS: BP 146/90; PULSE 60; RESP 16; TEMP 97.8; O2SAT 96
== END 2016-06-03 18:15 | DRG 71 ==
LOC: NEDAMB 17:58 → NEDA 22:19 → NEDH 06-01 03:10 → NEDA 06-01 12:48 → N07A 06-01 15:42
PROVIDERS: ADMIT Hospitalist; ATTEND Hospitalist
DX: G93.40 Encephalopathy, unspecified (principal); E87.0 Hyperosmolality and hypernatremia; D70.9 Neutropenia, unspecified; I49.5 Sick sinus syndrome; I48.2 Chronic atrial fibrillation; E83.51 Hypocalcemia; E87.6 Hypokalemia; Z79.01 Long term (current) use of anticoagulants; I25.10 Atherosclerotic heart disease of native coronary artery without angina pectoris; Z95.5 Presence of coronary angioplasty implant and graft; I10 Essential (primary) hypertension; Z95.0 Presence of cardiac pacemaker; G47.30 Sleep apnea, unspecified; E78.5 Hyperlipidemia, unspecified; K21.9 Gastro-esophageal reflux disease without esophagitis; N40.0 Benign prostatic hyperplasia without lower urinary tract symptoms; M81.0 Age-related osteoporosis without current pathological fracture; M10.9 Gout, unspecified; J45.909 Unspecified asthma, uncomplicated; N28.1 Cyst of kidney, acquired; Z87.442 Personal history of urinary calculi; Z87.891 Personal history of nicotine dependence; K80.20 Calculus of gallbladder without cholecystitis without obstruction; Z85.038 Personal history of other malignant neoplasm of large intestine; E11.9 Type 2 diabetes mellitus without complications; I25.2 Old myocardial infarction; M19.90 Unspecified osteoarthritis, unspecified site
CPT/HCPCS: 70450; 71010; 74177; 80053; 81001; 82550; 83605; 83690; 84443; 84484; 85007; 85025; 85027; 85610; 85730; 87040; 93005; 96361; 96374; J0610; J0692; J1650; J3480; J7030; Q9967

== ENCOUNTER 2016-06-12 16:25 | Emergency (ER) | payer MEDICARE, BC ==
[~2016-06-12] VITALS: Ht 177.8 cm; Wt 85.0 kg
[2016-06-12 16:25] VITALS: BP 124/84; PULSE 66; RESP 16; TEMP 98.3; O2SAT 97
[~2016-06-12 16:25] MED LIST changes: -CIPR-9 PO; -HYDR-3533 PO; -METR-1 PO; +OMEP40CA2 PO; -PRIL40CA PO; -ZOLP10TA3 PO
[2016-06-12 17:43] LABS: AUTOMATED NEUTROPHIL # 5.2 TH/MM3 (1.8-7.7); BASOPHIL # 0.1 TH/MM3 (0-0.2); BASOPHIL % 0.7 % (0.0-2.0); EOSINOPHIL % 0.6 % (0.0-4.0); HEMATOCRIT 43.1 % (39.0-51.0); HEMO FLAGS DIFF FINAL; LYMPH % 25.3 % (9.0-44.0); MEAN CELL VOLUME 95.1 FL (80.0-100.0); MEAN CORPUSCULAR HEMOGLOBIN 32.1 PG (27.0-34.0); MEAN CORPUSCULAR HGB CONC 33.7 % (32.0-36.0); MONO % 8.2 % (0.0-8.0); NEUT % 65.2 % (16.0-70.0); PLATELET COUNT 165 TH/MM3 (150-450); RED BLOOD COUNT 4.53 MIL/MM3 (4.50-5.90); RED CELL DISTRIBUTION WIDTH 13.7 % (11.6-17.2)
[2016-06-12 17:57] LABS: BACTERIA, URINE RARE /hpf; BLOOD, URINE SMALL (NEG); COMMENT (UR) CATH-CULTURE IND; CULTURE IF INDICATED CATH CULTURE IND; GLUCOSE,URINE NEG (NEG); HYALINE CAST, URINE 10 /lpf (RARE); KETONE, URINE NEG (NEG); MUCUS URINE FEW /lpf (OCC); NITRITE,URINE NEG (NEG); URINE COLOR YELLOW (YELLW/STRAW)
[2016-06-12 18:03] LABS: ANION GAP 9 MEQ/L (5-15); AST (GOT) 20 U/L (15-37); BICARBONATE 31.3 MEQ/L (21.0-32.0); BLOOD UREA NITROGEN 35 MG/DL (7-18); CHLORIDE 104 MEQ/L (98-107); GLOMERULAR FILTRATION RATE 36 ML/MIN (>89); POTASSIUM 4.3 MEQ/L (3.5-5.1); SODIUM (NA) 144 MEQ/L (136-145)
[2016-06-12 18:06] LABS: ALKALINE PHOSPHATASE 57 U/L (45-117); ALT (GPT) 25 U/L (12-78); TOTAL BILIRUBIN ADULT 0.6 MG/DL (0.2-1.0)
[2016-06-12 18:44] VITALS: BP 151/78; PULSE 66; RESP 16; O2SAT 98
--- NOTE | 2016-06-12 18:50 | PD ---
HPI Chief Complaint: Abdominal Pain Time Seen by Provider: 18:50 Travel History International Travel<30 days: No Contact w/Intl Traveler<30days: No Traveled to known affect area: No History of Present Illness HPI 85-year-old male with a history of A. fib on Coumadin, CAD, hypertension, sick sinus syndrome, hyperlipidemia is brought to the emergency department from [facility] for evaluation of abdominal pain. Per report from the facility the patient was complaining of abdominal pain earlier today and they were instructed by the rehab ALIGNMENT SPECIALIST to send the patient here to have a CT scan of his abdomen. The patient currently denies any abdominal pain. The patient denies any fever, chills, nausea, vomiting, diarrhea, constipation, bloody stool, cough or cold symptoms, chest pain, shortness of breath. The patient is awake, alert and oriented. PFSH Past Medical History Hx Anticoagulant Therapy: Yes (Coumadin ) Arthritis: Yes (HANDS, knees) Asthma: No Atrial Fibrillation: Yes Autoimmune Disease: No Blood Disorders: No Bipolar Disorder: No Anxiety: No Depression: No Heart Rhythm Problems: Yes Cancer: Yes (COLON) Cardiac Catheterization: Yes Cardiovascular Problems: Yes (AF, pacemaker, AICD) High Cholesterol: Yes Chemotherapy: Yes Chest Pain: Yes Congestive Heart Failure: Yes COPD: No Cerebrovascular Accident: No Diabetes: Yes (Borderline ) Patient Takes Glucophage: No Diminished Hearing: No Endocrine: Yes Gastrointestinal Disorders: Yes GERD: Yes Glaucoma: No Genitourinary: Yes Headaches: No Hepatitis: No Hiatal Hernia: No Hypertension: Yes Immune Disorder: No Implanted Vascular Access Dvce: Yes Kidney Stones: Yes Musculoskeletal: Yes Neurologic: No Psychiatric: No Reproductive: No Respiratory: Yes (Sleep apnea) Immunizations Current: Yes Migraines: No Myocardial Infarction: Yes Radiation Therapy: Yes Renal Failure: No Seizures: No Sickle Cell Disease: No Sleep Apnea: Yes Thyroid Disease: No Ulcer: No PNEUMOCCOCAL Vaccine (Year): 1 Past Surgical History Abdominal Surgery: Yes (COLON CA/ RESECTION, HERNIA REPAIR) AICD: Yes Appendectomy: Yes Arteriovenous Shunt: No Body Medical Devices: PACEMAKER/DEFIBRILLATOR Cardiac Surgery: Yes (CARDIAC CATH-09/25 ) Cholecystectomy: No Coronary Stent: Yes ("MULTIPLE") Ear Surgery: No Endocrine Surgery: No Eye Surgery: Yes (CATARACT SURGERY WITH LENS IMPLANTS) Genitourinary Surgery: No Gynecologic Surgery: No Insulin Pump: No Joint Replacement: No Neurologic Surgery: Yes (LOWER BACK SURGERY) Oral Surgery: No Pacemaker: Yes (ST HARJINDER MODEL) Thoracic Surgery: No Other Surgery: Yes (BACK SURGERYX2; COLON CA & RESECTION; PILONIDAL CYST REMOVED FROM SPINE; AP) Social History Alcohol Use: Yes (OCCASIONALLY) Tobacco Use: No Substance Use: No Allergies-Medications (Allergen,Severity, Reaction): Coded Allergies: Codeine (Verified Allergy, Severe, RESPIRATORY S/S, 05/31/16) Penicillin (Verified Allergy, Severe, RASH, SOB, 05/31/16) Percocet (Verified Allergy, Severe, RESPIRATORY S/S, 05/31/16) MRI PRECAUTION (Verified Adverse Reaction, Severe, NON CONDITIONAL PACEMAKER KMD 06/01/16, 06/01/16) PT HAS AN ADAPTA SR (ADSR01) WITH A ST HARJINDER PACING LEAD PER [employer] DEVICE VERIFICATION SERVICE. Reported Meds & Prescriptions Reported Meds & Active Scripts Active Reported Omeprazole 40 Mg Cap 40 Mg PO DAILY Coumadin (Warfarin) 7.5 Mg Tab 7.5 Mg PO SUTUWETHSA Take 1 tablet (7.5mg) on Sunday,Sunday,Sunday, and Sunday Coumadin (Warfarin) 5 Mg Tab 5 Mg PO MOFR Take 1 tablet (5mg) on Sunday and Sunday Zocor (Simvastatin) 40 Mg Tab 40 Mg PO HS Provigil (Modafinil) 200 Mg Tab 200 Mg PO DAILY PRN Klor-Con 8 (Potassium Chloride) 8 Meq Tab 8 Meq PO TID Lopressor (Metoprolol Tartrate) 50 Mg Tab 50 Mg PO DAILY Cardura (Doxazosin Mesylate) 4 Mg Tab 4 Mg PO DAILY Lasix (Furosemide) 40 Mg Tab 40 Mg PO DAILY Avapro (Irbesartan) 300 Mg Tab 300 Mg PO DAILY Norvasc (Amlodipine Besylate) 10 Mg Tab 10 Mg PO DAILY Allopurinol 100 Mg Tab 100 Mg PO DAILY Review of Systems Except as stated in HPI: all other systems reviewed are Neg Physical Exam Narrative GENERAL: Well-nourished and well-developed pleasant patient in no acute distress who is nontoxic appearing. SKIN: Warm and dry. HEAD: Normocephalic and atraumatic. EYES: No injection, drainage, or hyphema noted. PERRLA. EOMI. ENT: No nasal drainage noted. Oropharynx is clear. NECK: Supple and the trachea is midline. CARDIOVASCULAR: Regular rate and rhythm. RESPIRATORY: Breath sounds are equal bilaterally with no accessory muscle use, wheezing, rhonchi, or crackles. GASTROINTESTINAL: Abdomen is soft, non-tender, and nondistended. No rebound tenderness or guarding. MUSCULOSKELETAL: No obvious deformities, swelling, cyanosis, or ecchymosis is present throughout the upper and lower extremities. Patient has full range of motion without any signs of neurovascular compromise. NEUROLOGICAL: Awake, alert, and oriented. Normal speech and gait. Cranial nerves are grossly intact. Data Data Last Documented VS Vital Signs Date Time Temp Pulse Resp B/P Pulse Ox O2 Delivery O2 Flow Rate FiO2 06/12/16 20:34 75 20 156/84 92 Room Air 06/12/16 17:00 2 06/12/16 16:25 98.3 Orders Complete Blood Count With Diff (06/12/16 16:52) Comprehensive Metabolic Panel (06/12/16 16:52) Urinalysis - C+S If Indicated (06/12/16 16:52) Cath For Specimen (06/12/16 16:52) Iv Access Insert/Monitor (06/12/16 16:52) Oxygen Administration (06/12/16 16:52) Oximetry (06/12/16 16:52) Lipase (06/12/16 16:52) Urine Culture (06/12/16 17:05) Ct Abd/Pel W/O Iv Contrast (06/12/16 18:49) Sodium Chlor 0.9% 1000 Ml Inj (Ns 1000 M (06/12/16 18:51) Prothrombin Time / Inr (Pt) (06/12/16 19:17) Act Partial Throm Time (Ptt) (06/12/16 19:17) Labs Laboratory Tests Test 06/12/16 06/12/16 06/12/16 17:00 17:05 19:35 White Blood Count 8.0 TH/MM3 Red Blood Count 4.53 MIL/MM3 Hemoglobin 14.5 GM/DL Hematocrit 43.1 % Mean Corpuscular Volume 95.1 FL Mean Corpuscular Hemoglobin 32.1 PG Mean Corpuscular Hemoglobin 33.7 % Concent Red Cell Distribution Width 13.7 % Platelet Count 165 TH/MM3 Mean Platelet Volume 8.7 FL Neutrophils (%) (Auto) 65.2 % Lymphocytes (%) (Auto) 25.3 % Monocytes (%) (Auto) 8.2 % Eosinophils (%) (Auto) 0.6 % Basophils (%) (Auto) 0.7 % Neutrophils # (Auto) 5.2 TH/MM3 Lymphocytes # (Auto) 2.0 TH/MM3 Monocytes # (Auto) 0.7 TH/MM3 Eosinophils # (Auto) 0.0 TH/MM3 Basophils # (Auto) 0.1 TH/MM3 CBC Comment DIFF FINAL Differential Comment Sodium Level 144 MEQ/L Potassium Level 4.3 MEQ/L Chloride Level 104 MEQ/L Carbon Dioxide Level 31.3 MEQ/L Anion Gap 9 MEQ/L Blood Urea Nitrogen 35 MG/DL Creatinine 1.79 MG/DL Estimat Glomerular Filtration 36 ML/MIN Rate Random Glucose 114 MG/DL Calcium Level 8.7 MG/DL Total Bilirubin 0.6 MG/DL Aspartate Amino Transf 20 U/L (AST/SGOT) Alanine Aminotransferase 25 U/L (ALT/SGPT) Alkaline Phosphatase 57 U/L Total Protein 6.5 GM/DL Albumin 3.4 GM/DL Lipase 142 U/L Urine Color YELLOW Urine Turbidity CLEAR Urine pH 5.0 Urine Specific [place] 1.010 Urine Protein NEG mg/dL Urine Glucose (UA) NEG mg/dL Urine Ketones NEG mg/dL Urine Occult Blood SMALL Urine Nitrite NEG Urine Bilirubin NEG Urine Urobilinogen LESS THAN 2.0 MG/DL Urine Leukocyte Esterase NEG Urine RBC 2 /hpf Urine WBC LESS THAN 1 /hpf Urine Bacteria RARE /hpf Urine Hyaline Casts 10 /lpf Urine Mucus FEW /lpf Microscopic Urinalysis Comment CATH-CULTURE IND Prothrombin Time 22.3 SEC Prothromb Time International 2.0 RATIO Ratio Activated Partial 28.8 SEC Thromboplast Time [facility] Medical Decision Making Medical Screen Exam Complete: Yes Emergency Medical Condition: Yes Differential Diagnosis Colitis versus diverticulitis versus constipation versus other Narrative Course 85-year-old male is brought to the emergency department from his rehabilitation facility for evaluation of abdominal pain. Patient is afebrile, vital signs are stable. Physical examination is essentially unremarkable. Abdominal examination is benign. Patient currently has no complaints. The axis is obtained, labs have been drawn and sent, CT of the abdomen and pelvis without IV contrast has been ordered and is pending. CBC is unremarkable. CMP shows mild renal insufficiency with a creatinine of 1.79, BUN 35, GFR 36. This is slightly elevated from his baseline. Urinalysis shows small occult blood, rare bacteria and few mucus. Culture is pending. INR is therapeutic at 2.0. CT of the abdomen and pelvis is negative for any acute abnormalities. Again there is noted colonic diverticulosis without diverticulitis, calcified gallstone in the gallbladder, small hiatal hernia, large bilateral renal cysts. He is given a liter of IV fluids. Patient has remained stable and without complaint while here in the emergency department. The patient is stable to be discharged back to his [facility] facility. I discussed the case with my attending physician Dr. Salazar who is aware of the patients history, physical examination findings, and treatment plan. Diagnosis Primary Impression: Abdominal pain Qualified Code: R10.9 - Abdominal pain, unspecified location Additional Impressions: Mild dehydration Bilateral renal cysts Gallstone Qualified Code: K80.20 - Calculus of gallbladder without cholecystitis without obstruction Referrals: Mikie Vega MD, David G. MD Primary Care Physician Additional Instructions: Maintain adequate oral hydration. Follow-up with a urologist regarding these bilateral renal cysts and a general surgeon regarding this gallstone. Return to the ED for any acute worsening of symptoms. Med/Other Pt SpecificInfo: No Change to Meds Disposition: 03 DISCHARGE TO SNF Condition: Stable Geeta He Jun 12, 2016 18:50
[2016-06-12] MEDS ORDERED: SODIUM CHLOR 0.9% 1000 ML INJ 1,000 ML IV SCH (18:51)
[2016-06-12 19:01] VITALS: BP 157/72; PULSE 72; RESP 18; O2SAT 95
[2016-06-12 20:24] LABS: APTT (PATIENT) 28.8 SEC (24.3-30.1); PROTHROMBIN TIME - PATIENT 22.3 SEC (9.8-11.6)
[2016-06-12 20:34] VITALS: BP 156/84; PULSE 75; RESP 20; O2SAT 92
--- NOTE | 2016-06-12 21:28 | RADRPT ---
EXAM DATE/TIME: 06/12/2016 20:24 [facility] COMPARISON: No previous studies available for comparison. INDICATIONS : Generalized abdominal pain. ORAL CONTRAST: No oral contrast ingested. RADIATION DOSE: 15.84 CTDIvol (mGy) MEDICAL HISTORY : Cardiovascular disease. Hypertension. Carcinoma, colon. SURGICAL HISTORY : Colon resection, hernia repair ENCOUNTER: Initial ACUITY: 1 day PAIN SCALE: 4/10 LOCATION: Bilateral lower quadrant TECHNIQUE: Volumetric scanning of the abdomen and pelvis was performed. Using automated exposure control and ad justment of the mA and/or kV according to patient size, radiation dose was kept as low as reasonably achievable to obtain optimal diagnostic quality images. FINDINGS: There is dependent atelectasis in both lung bases. There are no acute findings in the liver, spleen, adrenals or pancreas. Calcified gallstone noted measuring up to 2.3 x 1.3 cm There is a small hiatal hernia. Large bilateral renal cysts present measuring up to 8.2 cm on the rig ht and 8.9 cm on the left. There is colonic diverticulosis without diverticulitis. CONCLUSION: 1. Colonic diverticulosis without diverticulitis. 2. Calcified gallstone in the gallbladder. 3. Small hiatal hernia. Large bilateral renal cysts. No bowel obstruction, free fluid or free air. 4. Dense coronary calcifications. Sarmad Enamorado MD on June 12, 2016 at 21:23 Board Certified Radiologist. This report was verified electronically.
--- NOTE | 2016-06-12 21:40 | PD ---
Data Data Last Documented VS Vital Signs Date Time Temp Pulse Resp B/P Pulse Ox O2 Delivery O2 Flow Rate FiO2 06/12/16 20:34 75 20 156/84 92 Room Air 06/12/16 17:00 2 06/12/16 16:25 98.3 Orders Complete Blood Count With Diff (06/12/16 16:52) Comprehensive Metabolic Panel (06/12/16 16:52) Urinalysis - C+S If Indicated (06/12/16 16:52) Cath For Specimen (06/12/16 16:52) Iv Access Insert/Monitor (06/12/16 16:52) Oxygen Administration (06/12/16 16:52) Oximetry (06/12/16 16:52) Lipase (06/12/16 16:52) Urine Culture (06/12/16 17:05) Ct Abd/Pel W/O Iv Contrast (06/12/16 18:49) Sodium Chlor 0.9% 1000 Ml Inj (Ns 1000 M (06/12/16 18:51) Prothrombin Time / Inr (Pt) (06/12/16 19:17) Act Partial Throm Time (Ptt) (06/12/16 19:17) Labs Laboratory Tests Test 06/12/16 06/12/16 06/12/16 17:00 17:05 19:35 White Blood Count 8.0 TH/MM3 Red Blood Count 4.53 MIL/MM3 Hemoglobin 14.5 GM/DL Hematocrit 43.1 % Mean Corpuscular Volume 95.1 FL Mean Corpuscular Hemoglobin 32.1 PG Mean Corpuscular Hemoglobin 33.7 % Concent Red Cell Distribution Width 13.7 % Platelet Count 165 TH/MM3 Mean Platelet Volume 8.7 FL Neutrophils (%) (Auto) 65.2 % Lymphocytes (%) (Auto) 25.3 % Monocytes (%) (Auto) 8.2 % Eosinophils (%) (Auto) 0.6 % Basophils (%) (Auto) 0.7 % Neutrophils # (Auto) 5.2 TH/MM3 Lymphocytes # (Auto) 2.0 TH/MM3 Monocytes # (Auto) 0.7 TH/MM3 Eosinophils # (Auto) 0.0 TH/MM3 Basophils # (Auto) 0.1 TH/MM3 CBC Comment DIFF FINAL Differential Comment Sodium Level 144 MEQ/L Potassium Level 4.3 MEQ/L Chloride Level 104 MEQ/L Carbon Dioxide Level 31.3 MEQ/L Anion Gap 9 MEQ/L Blood Urea Nitrogen 35 MG/DL Creatinine 1.79 MG/DL Estimat Glomerular Filtration 36 ML/MIN Rate Random Glucose 114 MG/DL Calcium Level 8.7 MG/DL Total Bilirubin 0.6 MG/DL Aspartate Amino Transf 20 U/L (AST/SGOT) Alanine Aminotransferase 25 U/L (ALT/SGPT) Alkaline Phosphatase 57 U/L Total Protein 6.5 GM/DL Albumin 3.4 GM/DL Lipase 142 U/L Urine Color YELLOW Urine Turbidity CLEAR Urine pH 5.0 Urine Specific [place] 1.010 Urine Protein NEG mg/dL Urine Glucose (UA) NEG mg/dL Urine Ketones NEG mg/dL Urine Occult Blood SMALL Urine Nitrite NEG Urine Bilirubin NEG Urine Urobilinogen LESS THAN 2.0 MG/DL Urine Leukocyte Esterase NEG Urine RBC 2 /hpf Urine WBC LESS THAN 1 /hpf Urine Bacteria RARE /hpf Urine Hyaline Casts 10 /lpf Urine Mucus FEW /lpf Microscopic Urinalysis Comment CATH-CULTURE IND Prothrombin Time 22.3 SEC Prothromb Time International 2.0 RATIO Ratio Activated Partial 28.8 SEC Thromboplast Time MDM Medical Record Reviewed: Yes Supervised Visit with NICOLÁS: No Narrative Course I, Dr. Salazar, have reviewed the advance practice practitioner's documentation and am in agreement, met with the patient face to face, made the diagnosis, and the medical decision making was done by me. *My assessment and Findings: The patient has had 3 CTs of the abdomen and pelvis within a month showing no acute disease, hopefully henceforth CT ab/pel will be ordered with careful discretion. 8 cm bilateral renal cysts are present. Follow-up with urology advised. GB calculous of concern without evidence acute cholecystitis. Patient has been resting comfortably throughout ER stay. CBC & BMP Diagram 06/12/16 17:00 LFTs normal Lipase normal INR 2.0 UA bacteria, 0 WBCs, no leuk est/nitrie Last 24 hours Impressions Abdomen/Pelvis CT 06/12/16 [id number] Signed Impressions: Service Date/Time: Sunday, June 12, 2016 20:24 - CONCLUSION: 1. Colonic diverticulosis without diverticulitis. 2. Calcified gallstone in the gallbladder. 3. Small hiatal hernia. Large bilateral renal cysts. No bowel obstruction, free fluid or free air. 4. Dense coronary calcifications. MD Martin Sosa Daniel C. MD Jun 12, 2016 21:40
[2016-06-12 22:15] VITALS: BP 154/81
[2016-06-12 23:14] VITALS: BP 159/84; PULSE 77; RESP 18; O2SAT 94
== END 2016-06-12 22:15 ==
LOC: NEPE 16:25 → NEPA 22:15
DX: R10.9 Unspecified abdominal pain (principal); E86.0 Dehydration; N28.1 Cyst of kidney, acquired; K80.20 Calculus of gallbladder without cholecystitis without obstruction; I48.91 Unspecified atrial fibrillation; I25.10 Atherosclerotic heart disease of native coronary artery without angina pectoris; I10 Essential (primary) hypertension; I50.9 Heart failure, unspecified; E11.9 Type 2 diabetes mellitus without complications; G47.30 Sleep apnea, unspecified; I25.2 Old myocardial infarction; K21.9 Gastro-esophageal reflux disease without esophagitis; E78.00 Pure hypercholesterolemia, unspecified; Z79.01 Long term (current) use of anticoagulants; Z87.442 Personal history of urinary calculi
CPT/HCPCS: 74176; 80053; 81001; 83690; 85025; 85610; 85730; 87086; 96360; 99284; J7030; P9612